=== PATIENT | female | born 1990 | race African-American/Black ===

== ENCOUNTER 2016-10-02 23:08 | Emergency (ER) | payer MEDICAID ==
--- NOTE | 2016-10-02 23:29 | ER Document Report ---
ED General - General Chief Complaint: Nausea/Vomiting Stated Complaint: VOMITING Mode of Arrival: Ambulatory Information source: Patient Notes: Patient presents to the emergency department with reports of sporadic vomiting for the past week. She reports she is able to keep fluids down but unable to keep certain foods down. She reports smells make her nauseated and she will vomit. Patient reports she is possibly hasn't had her menses in the past 2-3 months. She reports she is irregular. She denies other symptoms such as fever diarrhea pain with void vaginal discharge abdominal pain. TRAVEL OUTSIDE OF THE [place] IN LAST 30 DAYS: No - HPI Onset: Last week Onset/Duration: Persistent, Waxing and waning Quality of pain: No pain Severity: None Associated symptoms: Nausea, Vomiting Exacerbated by: Denies Relieved by: Denies Similar symptoms previously: No Recently seen / treated by doctor: No - Related Data Allergies/Adverse Reactions: No Known Allergies Allergy (Verified 10/02/16 23:16) Past Medical History - General Information source: Patient Last Menstrual Period: Unsure - Social History Smoking Status: Never Smoker Cigarette use (# per day): No Frequency of alcohol use: None Drug Abuse: None Occupation: none Lives with: Family Family History: Reviewed & Not Pertinent Patient has suicidal ideation: No Patient has homicidal ideation: No - Medical History Medical History: Negative Past Surgical History: Reports: Hx Section - Immunizations Hx Diphtheria, Pertussis, Tetanus Vaccination: Yes - 09/26/12 Review of Systems - Review of Systems Notes: Review HPI for review of systems., All other systems negative Physical Exam - Vital signs Vitals: Temp Pulse Resp BP Pulse Ox 98.7 F 93 16 128/91 H 96 10/02/16 23:16 10/02/16 23:16 10/02/16 23:16 10/02/16 23:16 10/02/16 23:16 - Notes Notes: PHYSICAL EXAMINATION: GENERAL: Well-appearing and in no acute distress nontoxic looking HEAD: Atraumatic, normocephalic. EYES: Pupils equal round extraocular movements intact, sclera anicteric, conjunctiva are normal. ENT: nares patent, Moist mucous membranes. NECK: Normal range of motion, supple without lymphadenopathy LUNGS: CTAB and equal. No wheezes rales or rhonchi. HEART: Regular rate and rhythm without murmurs ABDOMEN: Soft, no tenderness. Denies pain No guarding, no rebound BACK:Denies pain EXTREMITIES: Normal range of motion NEUROLOGICAL: Cranial nerves grossly intact. Normal sensory/motor exams. PSYCH: Normal mood, normal affect. SKIN: Warm, Dry, normal turgor, no rashes or lesions noted Course - Re-evaluation Re-evalutation: 10/03/16 02:54 Pt isntructed on positive , she started crying. Reports sexually active [place] [id number]. Patient reports she was last sexually active between June and July. She denies abdominal pain. She reports vomiting only. Denies vaginal bleeding. And she reports vomiting only when she has certain smells. She reports she's drinking enough fluids. Patient was instructed on the importance of follow-up with health department or the REGISTERED ART THERAPIST to get on vitamins. She was also instructed on urinary tract infection and Keflex. She verbalized understanding to instructions. - Vital Signs Vital signs: Temp Pulse Resp BP Pulse Ox 98.7 F 93 16 128/91 H 96 10/02/16 23:16 10/02/16 23:16 10/02/16 23:16 10/02/16 23:16 10/02/16 23:16 - Laboratory Result Diagrams: 10/02/16 23:53 10/02/16 23:53 Laboratory results interpreted by me: 10/02/16 10/02/16 10/02/16 23:53 23:53 23:53 Hgb 10.4 L Hct 31.9 L MCV 74 L MCH 24.2 L RDW 17.7 H Serum HCG, Qual POSITIVE H Beta HCG, Quant Ur Leukocyte Esterase MODERATE H 10/02/16 23:53 Hgb Hct MCV MCH RDW Serum HCG, Qual Beta HCG, Quant 17426.00 H Ur Leukocyte Esterase Discharge - Discharge Clinical Impression: elevated blood pressure, Nausea & vomiting Qualifiers: Vomiting type: unspecified Vomiting Intractability: non-intractable Qualified Code(s): R11.2 - Nausea with vomiting, unspecified Infection of urinary tract Qualifiers: Urinary tract infection type: site unspecified Hematuria presence: without hematuria Qualified Code(s): N39.0 - Urinary tract infection, site not specified Condition: Stable Disposition: HOME, SELF-CARE Instructions: Cephalexin ([facility]), Urinary Tract Infection ([facility]), Antinausea Medication ([facility]), Vomiting ([facility]), ([facility]), [employer] [facility], [facility] Additional Instructions: *You have been evaluated for nausea/vomiting, , UTI *Take medication as prescribed *Push fluids *Follow-up with REGISTERED ART THERAPIST or the health department within one week *Follow up with a primary care provider within one week *Plan a urine recheck within one week *Return to ED for worsening condition, changes, needs Prescriptions: Cephalexin Monohydrate [Keflex 500 mg Capsule] 500 mg PO QID #20 capsule Forms: Elevated Blood Pressure Referrals: CONSTANZA ABDULLAHI MARINE SERVICE MANAGER [Primary Care Provider] - Follow up as needed
[2016-10-03 00:05] LABS: ABSOLUTE BASOPHILS # (AUTO) 0.1 10^3/uL (0.0-0.2); ABSOLUTE LYMPHOCYTES (AUTO) 2.9 10^3/uL (0.5-4.7); ABSOLUTE MONOCYTES (AUTO) 0.5 10^3/uL (0.1-1.4); ABSOLUTE NEUT (AUTO) 5.3 10^3/uL (1.7-8.2); BASOPHILS % (AUTO) 0.6 % (0-2); EOSINOPHILS % (AUTO) 0.5 % (0-6); HEMATOCRIT 31.9 % (36.0-47.0); HEMOGLOBIN 10.4 g/dL (12.0-15.5); HGB HCT DIFFERENCE -0.7; LYMPHOCYTES % (AUTO) 33.5 % (13-45); MEAN CORPUSCULAR HEMOGLOBIN 24.2 pg (27.0-33.4); MEAN CORPUSCULAR HGB CONC 32.6 g/dL (32.0-36.0); MEAN CORPUSCULAR VOLUME 74 fl (80-97); MONOCYTES % (AUTO) 5.6 % (3-13); RED BLOOD COUNT 4.29 10^6/uL (3.72-5.28); RED CELL DISTRIBUTION WIDTH 17.7 % (11.5-14.0); SEGMENTED NEUTROPHILS % (AUTO) 59.8 % (42-78); WHITE BLOOD COUNT 8.8 10^3/uL (4.0-10.5)
[2016-10-03 00:16] LABS: APPEARANCE,URINE SLIGHTLY-CLOUDY; BILIRUBIN,URINE NEGATIVE (NEGATIVE); GLUCOSE, URINE NEGATIVE (NEGATIVE); KETONES,URINE NEGATIVE (NEGATIVE); LEUKOCYTE ESTERASE,URINE MODERATE (NEGATIVE); NITRITE,URINE NEGATIVE (NEGATIVE); PROTEIN,URINE NEGATIVE (NEGATIVE); URINE SPECIFIC GRAVITY 1.028; UROBILINOGEN,URINE NEGATIVE mg/dL (<2.0)
[2016-10-03 00:22] LABS: ALANINE AMINOTRANSFERASE 21 U/L (9-52); ALBUMIN 3.9 g/dL (3.5-5.0); ALKALINE PHOSPHATASE 58 U/L (38-126); ANION GAP 10 (5-19); ASPARTATE AMINO TRANSFERASE 21 U/L (14-36); BILIRUBIN,TOTAL 0.3 mg/dL (0.2-1.3); BLOOD UREA NITROGEN 10 mg/dL (7-20); CALCIUM 9.2 mg/dL (8.4-10.2); CARBON DIOXIDE 26 mmol/L (22-30); CHLORIDE 103 mmol/L (98-107); CREATININE RESULT 0.74 mg/dL (0.52-1.25); GLUCOSE 92 mg/dL (75-110); LIPASE 31.8 U/L (23-300); POTASSIUM 3.8 mmol/L (3.6-5.0); SODIUM 139.3 mmol/L (137-145); TOTAL PROTEIN 7.8 g/dL (6.3-8.2)
[2016-10-03] MEDS ORDERED: CEPHALEXIN 500 MG CAPSULE PO ONE (02:15)
[2016-10-03 03:01] VITALS: BP 133/75
== END 2016-10-03 02:59 | disposition home or self-care (01) ==
LOC: ER 23:08
DX: O21.9 Vomiting of pregnancy, unspecified (principal); O23.40 Unspecified infection of urinary tract in pregnancy, unspecified trimester; O26.899 Other specified pregnancy related conditions, unspecified trimester; R03.0 Elevated blood-pressure reading, without diagnosis of hypertension; Z3A.00 Weeks of gestation of pregnancy not specified
CPT/HCPCS: 36415; 80053; 81001; 83690; 84702; 84703; 85025; 99284

== ENCOUNTER 2017-01-12 19:15 | Emergency (ER) | payer SELFPAY ==
[2017-01-12] MEDS ORDERED: AMOXICILLIN TRIHYDRATE 500 MG CAPSULE PO ONE (20:04)
[2017-01-12] MEDS ORDERED: HYDROCODONE/ACETAMINOPHEN 5-325 MG TABLET PO ONE (20:04)
--- NOTE | 2017-01-12 20:11 | ER Document Report ---
HPI - HPI Patient complains to provider of: RIGHT EAR PAIN Onset: Other - 2 DAYS Onset/Duration: Gradual Quality of pain: Throbbing Severity: Severe Pain Level: 5 Associated Symptoms: Earache Exacerbated by: Denies Relieved by: Denies Similar symptoms previously: Yes Recently seen / treated by doctor: No - ROS Systems Reviewed and Negative: Yes All other systems reviewed and negative - CONSTITUTIONAL Constitutional: REPORTS: Fever - EENT EENT: REPORTS: Ear Pain. DENIES: Congestion - NEURO Neurology: REPORTS: Headache - CARDIOVASCULAR Cardiovascular: DENIES: Chest pain - RESPIRATORY Respiratory: DENIES: Trouble Breathing - GASTROINTESTINAL Gastrointestinal: DENIES: Abdominal Pain - URINARY Urinary: DENIES: Dysuria - REPRODUCTIVE LMP: 5 days ago Reproductive: DENIES: : - DERM Skin Color: Normal Skin Problems: None Past Medical History - General Information source: Patient - Social History Smoking Status: Never Smoker Frequency of alcohol use: None Drug Abuse: None Lives with: Family Family History: Reviewed & Not Pertinent - Medical History Medical History: Negative Renal/ Medical History: Denies: Hx Peritoneal Dialysis Past Surgical History: Reports: Hx Section - Immunizations Hx Diphtheria, Pertussis, Tetanus Vaccination: Yes - 09/26/12 Vertical Provider Document - CONSTITUTIONAL Agree With Documented VS: Yes Exam Limitations: No Limitations General Appearance: WD/WN, Mild Distress - INFECTION CONTROL TRAVEL OUTSIDE OF THE [place] IN LAST 30 DAYS: No - HEENT HEENT: Atraumatic, Normocephalic. negative: Pharyngeal Erythema Notes: LEFT TM RED AND RETRACTED - NECK Neck: Normal Inspection - RESPIRATORY Respiratory: Breath Sounds Normal, No Respiratory Distress O2 Sat by Pulse Oximetry: 99 - CARDIOVASCULAR Cardiovascular: Regular Rate, Regular Rhythm - GI/ABDOMEN Gastrointestinal: Abdomen Soft - MUSCULOSKELETAL/EXTREMETIES Musculoskeletal/Extremeties: MAJEVON FROM - NEURO Level of Consciousness: Awake, Alert, Appropriate - DERM Integumentary: Warm, Dry, No Rash Course - Vital Signs Vital signs: Temp Pulse Resp BP Pulse Ox 98.5 F 64 14 137/76 H 99 01/12/17 19:44 01/12/17 19:44 01/12/17 19:44 01/12/17 19:44 01/12/17 19:44 Discharge - Discharge Clinical Impression: Left acute otitis media Condition: Good Disposition: HOME, SELF-CARE Additional Instructions: MEDS PRESCRIBED TYLENOL OR MOTRIN FOR PAIN FOLLOW UP WITH YOUR DOCTOR IF NOT BETTER IN ONE WEEK RETURN NEEDED Prescriptions: Amoxicillin 875 mg PO BID #20 tablet Ibuprofen 800 mg PO TID PRN #30 tablet PRN Reason: Forms: Return to Work
[2017-01-12 20:28] VITALS: BP 135/80
== END 2017-01-12 20:27 | disposition home or self-care (01) ==
LOC: ER 19:15
DX: H66.92 Otitis media, unspecified, left ear (principal); R51 Headache
CPT/HCPCS: 99282

== ENCOUNTER 2017-04-01 10:59 | Emergency (ER) | payer SELFPAY ==
[2017-04-01] MEDS ORDERED: PENICILLIN G BENZATHINE 1.2 MILLION UNIT/2 ML DISP.SYRIN IM ONE (11:33)
[2017-04-01] MEDS ORDERED: DEXAMETHASONE 4 MG TABLET PO ONE (11:33)
[2017-04-01] MEDS ORDERED: IBUPROFEN 800 MG TABLET PO ONE (11:33)
--- NOTE | 2017-04-01 11:38 | ER Document Report ---
HPI - HPI Patient complains to provider of: sore throat Onset: Other - 4 days Onset/Duration: Persistent Quality of pain: Achy Pain Level: 5 Context: Presents complaining of sore throat for the past 4 days. Patient denies any cough. Associated Symptoms: Sore throat. denies: Nonproductive cough, Productive cough Exacerbated by: Denies Relieved by: Denies Similar symptoms previously: Yes Recently seen / treated by doctor: No - ROS ROS below otherwise negative: Yes Systems Reviewed and Negative: Yes All other systems reviewed and negative - CONSTITUTIONAL Constitutional: DENIES: Fever - EENT EENT: REPORTS: Sore Throat - RESPIRATORY Respiratory: DENIES: Coughing - GASTROINTESTINAL Gastrointestinal: DENIES: Nausea, Patient vomiting - REPRODUCTIVE LMP: 03/11/17 Reproductive: DENIES: : - MUSCULOSKELETAL Musculoskeletal: DENIES: Neck Pain - DERM Skin Color: Normal Skin Problems: None Past Medical History - General Information source: Patient - Social History Smoking Status: Never Smoker Frequency of alcohol use: None Drug Abuse: None Occupation: none Family History: Reviewed & Not Pertinent Patient has suicidal ideation: No Patient has homicidal ideation: No - Medical History Medical History: Negative Renal/ Medical History: Denies: Hx Peritoneal Dialysis Past Surgical History: Reports: Hx Section - Immunizations Hx Diphtheria, Pertussis, Tetanus Vaccination: Yes - 09/26/12 Vertical Provider Document - CONSTITUTIONAL Agree With Documented VS: Yes Exam Limitations: No Limitations General Appearance: WD/WN, No Apparent Distress - INFECTION CONTROL TRAVEL OUTSIDE OF THE [place] IN LAST 30 DAYS: No - HEENT HEENT: Atraumatic, Normocephalic, Pharyngeal Exudate, Pharyngeal Tenderness, Pharyngeal Erythema - NECK Neck: Lymphadenopathy-Left, Lymphadenopathy-Right - RESPIRATORY Respiratory: Breath Sounds Normal, No Respiratory Distress, Chest Non-Tender - CARDIOVASCULAR Cardiovascular: Regular Rate, Regular Rhythm, No Murmur - MUSCULOSKELETAL/EXTREMETIES Musculoskeletal/Extremeties: MAEW - NEURO Level of Consciousness: Awake, Alert, Appropriate Motor/Sensory: No Motor Deficit - DERM Integumentary: Warm, Dry, No Rash Course - Re-evaluation Re-evalutation: 04/01/17 11:37 The patient has been informed that they may have pre-hypertension or hypertension based on a blood pressure reading in the emergency department. I recommend that patient call the primary care provider listed on their discharge instructions or a physician of their choice by this week to arrange follow-up for further evaluation of possible pre-hypertension her hypertension. Discharge - Discharge Clinical Impression: Tonsillitis, Elevated blood pressure reading Condition: Stable Disposition: HOME, SELF-CARE Instructions: Tonsillitis ([facility]), Sore Throat ([facility]), Use of [id number] Ibuprofen ([facility]), Corticosteroid Medication ([facility]), Antibiotic Shot ([facility]) Additional Instructions: Return immediately for any new or worsening symptoms Followup with your primary care provider, call tomorrow to make a followup appointment Your blood pressure is elevated recheck with a primary care provider this week to have it rechecked Prescriptions: Acetaminophen with Codeine [Acetaminophen-Cod #3 Tablet] 1 each PO Q6 PRN #12 tablet PRN Reason: Forms: Elevated Blood Pressure Referrals: KAREN REED MD [Primary Care Provider] - Follow up as needed
[2017-04-01 12:12] VITALS: BP 142/98
== END 2017-04-01 12:10 | disposition home or self-care (01) ==
LOC: ER 10:59
DX: J03.90 Acute tonsillitis, unspecified (principal); R03.0 Elevated blood-pressure reading, without diagnosis of hypertension; J02.9 Acute pharyngitis, unspecified
CPT/HCPCS: 99284; 96372; J0561

== ENCOUNTER 2017-06-05 21:57 | Emergency (ER) | payer SELFPAY ==
[2017-06-05 22:58] LABS: APPEARANCE,URINE SLIGHTLY-CLOUDY; BILIRUBIN,URINE NEGATIVE (NEGATIVE); GLUCOSE, URINE NEGATIVE (NEGATIVE); KETONES,URINE NEGATIVE (NEGATIVE); LEUKOCYTE ESTERASE,URINE TRACE (NEGATIVE); NITRITE,URINE NEGATIVE (NEGATIVE); PROTEIN,URINE NEGATIVE (NEGATIVE); URINE SPECIFIC GRAVITY 1.033; UROBILINOGEN,URINE NEGATIVE mg/dL (<2.0)
[2017-06-05 23:08] LABS: ABSOLUTE BASOPHILS # (AUTO) 0.1 10^3/uL (0.0-0.2); ABSOLUTE LYMPHOCYTES (AUTO) 2.8 10^3/uL (0.5-4.7); ABSOLUTE MONOCYTES (AUTO) 0.6 10^3/uL (0.1-1.4); ABSOLUTE NEUT (AUTO) 5.8 10^3/uL (1.7-8.2); EOSINOPHILS % (AUTO) 0.5 % (0-6); HEMATOCRIT 30.9 % (36.0-47.0); HEMOGLOBIN 10.2 g/dL (12.0-15.5); HGB HCT DIFFERENCE -0.3; MEAN CORPUSCULAR HEMOGLOBIN 25.4 pg (27.0-33.4); MEAN CORPUSCULAR VOLUME 77 fl (80-97); MONOCYTES % (AUTO) 6.1 % (3-13); RED BLOOD COUNT 4.03 10^6/uL (3.72-5.28); RED CELL DISTRIBUTION WIDTH 17.8 % (11.5-14.0); SEGMENTED NEUTROPHILS % (AUTO) 62.4 % (42-78); WHITE BLOOD COUNT 9.3 10^3/uL (4.0-10.5)
[2017-06-05 23:25] LABS: ALANINE AMINOTRANSFERASE 20 U/L (9-52); ALBUMIN 3.3 g/dL (3.5-5.0); ALKALINE PHOSPHATASE 53 U/L (38-126); ANION GAP 8 (5-19); ASPARTATE AMINO TRANSFERASE 13 U/L (14-36); BILIRUBIN,DIRECT 0.2 mg/dL (0.0-0.4); BILIRUBIN,TOTAL 0.2 mg/dL (0.2-1.3); BLOOD UREA NITROGEN 12 mg/dL (7-20); CALCIUM 9.5 mg/dL (8.4-10.2); CARBON DIOXIDE 24 mmol/L (22-30); CHLORIDE 108 mmol/L (98-107); CREATININE RESULT 0.84 mg/dL (0.52-1.25); GLUCOSE 104 mg/dL (75-110); LIPASE 82.3 U/L (23-300); POTASSIUM 3.9 mmol/L (3.6-5.0); SODIUM 140.3 mmol/L (137-145); TOTAL PROTEIN 6.6 g/dL (6.3-8.2)
--- NOTE | 2017-06-06 | ER Document Report ---
ED GI/ - General Chief Complaint: Abdominal Cramping Stated Complaint: HEADACHE/BACK PAIN Time Seen by Provider: 06/05/17 22:33 Mode of Arrival: Ambulatory Information source: Patient Notes: Patient is a 27-year-old female who presents to the ER today for 1 week of abdominal cramping in the lower abdomen, low back pain. Patient last had her period April 15, took a test a few days ago at home which was positive. She does have an appointment at the health department in 2 days, but wanted to come here to confirm that her test was correct. She denies any dysuria, vaginal bleeding, abnormal vaginal discharge. TRAVEL OUTSIDE OF THE [place] IN LAST 30 DAYS: No - Related Data Allergies/Adverse Reactions: No Known Allergies Allergy (Verified 06/05/17 22:03) Past Medical History - General Information source: Patient - Social History Smoking Status: Never Smoker Chew tobacco use (# tins/day): No Frequency of alcohol use: None Drug Abuse: None Family History: Reviewed & Not Pertinent Patient has suicidal ideation: No Patient has homicidal ideation: No Renal/ Medical History: Denies: Hx Peritoneal Dialysis Past Surgical History: Reports: Hx Section - x1 - Immunizations Hx Diphtheria, Pertussis, Tetanus Vaccination: Yes - 09/26/12 Review of Systems - Review of Systems Constitutional: No symptoms reported EENT: No symptoms reported Cardiovascular: No symptoms reported Respiratory: No symptoms reported Gastrointestinal: No symptoms reported Genitourinary: No symptoms reported Female Genitourinary: See HPI Musculoskeletal: No symptoms reported Skin: No symptoms reported Hematologic/Lymphatic: No symptoms reported Neurological/Psychological: No symptoms reported Physical Exam - Vital signs Vitals: Temp Pulse Resp BP Pulse Ox 98.2 F 80 18 161/77 H 93 06/05/17 22:03 06/05/17 22:03 06/05/17 22:03 06/05/17 22:03 06/05/17 22:03 - Notes Notes: PHYSICAL EXAMINATION: GENERAL: Well-appearing and in no acute distress. HEAD: Atraumatic, normocephalic. EYES: Pupils equal round and reactive to light, extraocular movements intact, sclera anicteric, conjunctiva are normal. NECK: Normal range of motion, supple without lymphadenopathy LUNGS: CTAB and equal. No wheezes rales or rhonchi. HEART: Regular rate and rhythm without murmurs ABDOMEN: Soft, no tenderness. No guarding, no rebound BACK: no vertebral tenderness, normal ROM GI/: no CVA tenderness EXTREMITIES: Normal range of motion, no pitting edema. No cyanosis. NEUROLOGICAL: Cranial nerves grossly intact. Normal sensory/motor exams. PSYCH: Normal mood, normal affect. SKIN: Warm, Dry, normal turgor, no rashes or lesions noted Course - Re-evaluation Re-evalutation: 06/06/17 01:01 HCG quant is over 10,000, she has an appt at the Health department in 2 days, I advised her to keep this appointment. I will treat her for UTI as she does have some white blood cells and trace leukocytes in her urine although she also has epithelial cells. I am treating her because there is an increased risk of miscarriage with UTI. 06/06/17 01:03 - Vital Signs Vital signs: Temp Pulse Resp BP Pulse Ox 97.8 F 70 18 141/89 H 100 06/06/17 00:02 06/06/17 00:02 06/06/17 00:02 06/06/17 00:02 06/06/17 00:02 - Laboratory Result Diagrams: 06/05/17 23:00 06/05/17 23:00 Laboratory results interpreted by me: 06/05/17 06/05/17 06/05/17 22:32 23:00 23:00 Hgb 10.2 L Hct 30.9 L MCV 77 L MCH 25.4 L RDW 17.8 H Chloride 108 H AST 13 L Albumin 3.3 L Beta HCG, Quant 00393.00 H Ur Leukocyte Esterase TRACE H Discharge - Discharge Clinical Impression: Abdominal cramping Qualifiers: Weeks of gestation: less than 8 weeks Qualified Code(s): Z3A.01 - Less than 8 weeks gestation of UTI (urinary tract infection) Qualifiers: Urinary tract infection type: site unspecified Hematuria presence: without hematuria Qualified Code(s): N39.0 - Urinary tract infection, site not specified Condition: Stable Disposition: HOME, SELF-CARE Additional Instructions: Take vitamins [id number]. Return immediately for any new or worsening symptoms. Follow up with APPLICATION ADMINISTRATOR, call tomorrow to make followup appointment. Prescriptions: Nitrofurantoin/Nitrofuran Mac [Macrobid 100 mg Capsule] 1 tab PO BID #14 capsule Referrals: KAREN REED MD [Primary Care Provider] - Follow up as needed [facility] [Provider Group] - Follow up as needed
[2017-06-06 00:05] VITALS: BP 141/89
== END 2017-06-06 00:05 | disposition home or self-care (01) ==
LOC: ER 21:57
DX: O23.41 Unspecified infection of urinary tract in pregnancy, first trimester (principal); R10.30 Lower abdominal pain, unspecified; R51 Headache; Z3A.01 Less than 8 weeks gestation of pregnancy
CPT/HCPCS: 36415; 80053; 81001; 83690; 84702; 85025; 99284

== ENCOUNTER 2017-06-11 05:09 | Emergency (ER) | payer MEDICAID ==
[2017-06-11] MEDS ORDERED: PENICILLIN V POTASSIUM 500 MG TABLET PO ONE (06:43)
[2017-06-11] MEDS ORDERED: BUPIVACAINE HCL 0.5 % INJ/PF 30 ML SDV INJ ONE (06:43)
--- NOTE | 2017-06-11 07:11 | ER Document Report ---
ED General - General Chief Complaint: Toothache Stated Complaint: TOOTHACHE Time Seen by Provider: 06/11/17 06:13 Mode of Arrival: Ambulatory Information source: Patient Notes: 27-year-old female who is 8 weeks with no vaginal or abdominal complaints presents with was a dental pain. Patient notes it is in the right upper, pt denies any fevers or chills, denies any facial swelling. pt on going for 3 days, denies having a dentist. TRAVEL OUTSIDE OF THE [place] IN LAST 30 DAYS: No - HPI Onset: Other Onset/Duration: Persistent Quality of pain: Achy Severity: Mild Pain Level: 1 Associated symptoms: Other Exacerbated by: Denies Relieved by: Denies Similar symptoms previously: Yes Recently seen / treated by doctor: Yes - Related Data Allergies/Adverse Reactions: No Known Allergies Allergy (Verified 06/05/17 22:03) Past Medical History - Social History Smoking Status: Never Smoker Cigarette use (# per day): No Chew tobacco use (# tins/day): No Smoking Education Provided: No Family History: Reviewed & Not Pertinent Patient has suicidal ideation: No Patient has homicidal ideation: No Renal/ Medical History: Denies: Hx Peritoneal Dialysis Past Surgical History: Reports: Hx Section - x1 - Immunizations Hx Diphtheria, Pertussis, Tetanus Vaccination: Yes - 09/26/12 Review of Systems - Review of Systems Notes: REVIEW OF SYSTEMS: CONSTITUTIONAL : Denies fever, chills, or sweats. Denies recent illness. EENT: Dental pain CARDIOVASCULAR: Denies chest pain. Denies palpitations or racing or irregular heart beat. Denies ankle edema. RESPIRATORY: Denies cough, cold, or chest congestion. Denies shortness of breath, difficulty breathing, or wheezing. GASTROINTESTINAL: Denies abdominal pain or distention. Denies nausea, vomiting , or diarrhea. Denies blood in vomitus, stools, or per rectum. Denies black, tarry stools. Denies constipation. GENITOURINARY: Denies difficulty urinating, painful urination, burning, frequency, blood in urine, or discharge. FEMALE GENITOURINARY: Denies vaginal bleeding, heavy or abnormal periods, irregular periods. Denies vaginal discharge or odor. MUSCULOSKELETAL: Denies back or neck pain or stiffness. Denies joint pain or swelling. SKIN: Denies rash, lesions or sores. HEMATOLOGIC : Denies easy bruising or bleeding. LYMPHATIC: Denies swollen, enlarged glands. NEUROLOGICAL: Denies confusion or altered mental status. Denies passing out or loss of consciousness. Denies dizziness or lightheadedness. Denies headache. Denies weakness or paralysis or loss of use of either side. Denies problems with gait or speech. Denies sensory loss, numbness, or tingling. Denies seizures. PSYCHIATRIC: Denies anxiety or stress. Denies depression, suicidal ideation, or homicidal ideation. ALL OTHER SYSTEMS REVIEWED AND NEGATIVE. PHYSICAL EXAMINATION: GENERAL: Well-appearing, well-nourished and in no acute distress. HEAD: Atraumatic, normocephalic. EYES: Pupils equal round and reactive to light, extraocular movements intact, conjunctiva are normal. ENT: Tooth #1 is fractured tender to palpation NECK: Normal range of motion, supple without lymphadenopathy LUNGS: Breath sounds clear to auscultation bilaterally and equal. No wheezes rales or rhonchi. HEART: Regular rate and rhythm without murmurs ABDOMEN: Soft, nontender, nondistended abdomen. No guarding, no rebound. No masses appreciated. Female : deferred Musculoskeletal: Normal range of motion, no pitting or edema. No cyanosis. NEUROLOGICAL: Cranial nerves grossly intact. Normal speech, normal gait. Normal sensory, motor exams PSYCH: Normal mood, normal affect. SKIN: Warm, Dry, normal turgor, no rashes or lesions noted. Dictation was performed using [employer] voice recognition software Physical Exam - Vital signs Vitals: Temp Pulse Resp BP Pulse Ox 98.3 F 84 18 141/93 H 98 06/11/17 05:13 06/11/17 05:13 06/11/17 05:13 06/11/17 05:13 06/11/17 05:13 Course - Re-evaluation Re-evalutation: 06/11/17 07:20 Patient's request and inferior orbital nerve block was performed with complete resolution of patient's pain. She will be started on penicillins otherwise well -appearing. Patient is given a list of low-cost dentistry to follow-up with After performing a Medical Screening Examination, I estimate there is LOW risk for a DEEP SPACE INFECTION (e.g., MILLICENT'S ANGINA OR RETROPHARYNGEAL ABSCESS), MENINGITIS, INTRACRANIAL HEMORRHAGE, or AIRWAY COMPROMISE, thus I consider the discharge disposition reasonable. Also, there is no evidence or peritonitis, sepsis, or toxicity. I have reevaluated this patient multiple times and no significant life threatening changes are noted. The patient and I have discussed the diagnosis and risks, and we agree with discharging home with close follow-up with the understanding that symptoms and presentations can change. We also discussed returning to the Emergency Department immediately if new or worsening symptoms occur. We have discussed the symptoms which are most concerning (e.g., changing or worsening pain, trouble swallowing or breathing, neck stiffness or fever) that necessitate immediate return. - Vital Signs Vital signs: Temp Pulse Resp BP Pulse Ox 98.3 F 84 18 141/93 H 98 06/11/17 05:13 06/11/17 05:13 06/11/17 05:13 06/11/17 05:13 06/11/17 05:13 Discharge - Discharge Clinical Impression: Pain, dental Qualifiers: Weeks of gestation: 8 weeks Qualified Code(s): Z3A.08 - 8 weeks gestation of Condition: Stable Disposition: HOME, SELF-CARE Instructions: Toothache ([facility]) Additional Instructions: Please follow-up with low cost dentistry that has been provided to your return immediately if there are any other concerns Prescriptions: Penicillin V Potassium [Penicillin Vk 500 mg Tablet] 500 mg PO Q6 #40 tablet Referrals: [facility]LLID[facility] DO [Primary Care Provider] - Follow up as needed
[2017-06-11 07:26] VITALS: BP 125/77
== END 2017-06-11 07:19 | disposition home or self-care (01) ==
LOC: ER 05:09
PROC: 3E0T3BZ Introduction of Anesthetic Agent into Peripheral Nerves and Plexi, Percutaneous Approach (ICD-10-PCS; principal; 2017-06-11)
DX: K08.89 Other specified disorders of teeth and supporting structures (principal); Z3A.08 8 weeks gestation of pregnancy
CPT/HCPCS: 99282; 64400; J3490

== ENCOUNTER → 2017-06-25 | Outpatient (CLI) | payer SELFPAY ==
--- NOTE | 2017-06-25 15:36 | RADIOLOGY REPORT (SQ) ---
EXAM DESCRIPTION: U/S OW2TAFM TRNABD 1GES W/ODOP COMPLETED DATE/TIME: 06/25/2017 2:49 pm REASON FOR STUDY: ENCOUNTER FOR SUPERVISION OF OTHER NORMAL FIRST TRIMESTER Z34.[address] FOR SUPRVSN OF NORMAL , FIRST TRIM COMPARISON: No previous this TECHNIQUE: Transvaginal and transabdominal static and realtime grayscale images acquired of the pelv is. Additional selected spectral and color Doppler images recorded. All images stored on PACs. bHCG: Not available, last menses 04/15/2017 LIMITATIONS: None. FINDINGS: FETUS: Living intrauterine . EGA: 8 weeks 1 day by crown-rump length MARY JANE: 02/03/2018 FHR: 175 beats per minute. SUBCHORIONIC BLEED: No SIZE OF BLEED: Not applicable. UTERUS: No masses. No anomalies. Uterus is 11.1 x 8.5 x 7.6 cm in size. CERVICAL LENGTH: 3.2 cm Closed. RIGHT ADNEXA: Ovary not visualized. No adnexal free fluid. No adnexal masses. LEFT ADNEXA: Normal ovary with normal vascular flow. Left ovary 2.8 x 1.9 x 1.7 cm No adnexal free fluid. No adnexal masses. FREE FLUID: None. OTHER: No other significant finding. IMPRESSION: LIVING INTRAUTERINE . EGA 8 weeks 1 day Trimester of : First - 0 to 13 weeks. TECHNICAL DOCUMENTATION: JOB ID: [id number]- All Rights Reserved
== END ==
LOC: RAD 14:12
PROVIDERS: ATTEND Nurse Practitioner Women's Health
DX: Z34.81 Encounter for supervision of other normal pregnancy, first trimester (principal)
CPT/HCPCS: 76801

== ENCOUNTER 2017-11-09 18:15 | Outpatient (CLI) | payer MEDICAID ==
[2017-11-09 18:57] LABS: APPEARANCE,URINE SLIGHTLY-CLOUDY; BILIRUBIN,URINE NEGATIVE (NEGATIVE); CALCIUM OXALATE CRYSTALS,URINE FEW /HPF; COLOR,URINE YELLOW; GLUCOSE, URINE NEGATIVE (NEGATIVE); KETONES,URINE NEGATIVE (NEGATIVE); LEUKOCYTE ESTERASE,URINE TRACE (NEGATIVE); NITRITE,URINE NEGATIVE (NEGATIVE); PROTEIN,URINE NEGATIVE (NEGATIVE); URINE SPECIFIC GRAVITY 1.025
[2017-11-09 19:06] LABS: URINE AMPHETAMINES SCREEN NEGATIVE; URINE BARBITURATES SCREEN NEGATIVE; URINE BENZODIAZEPINES SCREEN NEGATIVE; URINE COCAINE SCREEN NEGATIVE; URINE MARIJUANA (THC) SCREEN NEGATIVE; URINE METHADONE SCREEN NEGATIVE; URINE PHENCYCLIDINE SCREEN NEGATIVE
[2017-11-09] MEDS ORDERED: MAG HYDROX/AL HYDROX/SIMETH SUSP 30 ML UDCUP ONE (20:11)
[2017-11-09] MEDS ORDERED: METOCLOPRAMIDE HCL ORAL SOLN 10 MG/10 ML UDCUP PO ONE (20:30)
[2017-11-09] MEDS ORDERED: LIDOCAINE 2% VISCOUS SOLN 20 ML UDCUP PO ONE (20:30)
[2017-11-09] MEDS ORDERED: MAG HYDROX/AL HYDROX/SIMETH SUSP 30 ML UDCUP PO ONE (20:30)
== END 2017-11-09 20:51 | disposition home or self-care (01) ==
LOC: LC 18:15
PROVIDERS: ATTEND Obstetrics & Gynecology
PROC: 4A1HXCZ Monitoring of Products of Conception, Cardiac Rate, External Approach (ICD-10-PCS; principal; 2017-11-09)
DX: O36.8130 Decreased fetal movements, third trimester, not applicable or unspecified (principal); Z3A.28 28 weeks gestation of pregnancy
CPT/HCPCS: 59899; 81001; 80307; J3490 ×3

== ENCOUNTER 2018-01-27 04:54 | Inpatient (IN) | payer MEDICAID ==
[2018-01-26 12:02] LABS: APPEARANCE,URINE SLIGHTLY-CLOUDY; BILIRUBIN,URINE NEGATIVE (NEGATIVE); COLOR,URINE YELLOW; GLUCOSE, URINE NEGATIVE (NEGATIVE); KETONES,URINE NEGATIVE (NEGATIVE); LEUKOCYTE ESTERASE,URINE NEGATIVE (NEGATIVE); NITRITE,URINE NEGATIVE (NEGATIVE); PROTEIN,URINE NEGATIVE (NEGATIVE); URINE SPECIFIC GRAVITY 1.019; UROBILINOGEN,URINE NEGATIVE mg/dL (<2.0)
[2018-01-26 12:14] LABS: ABSOLUTE LYMPHOCYTES (AUTO) 1.6 10^3/uL (0.5-4.7); ABSOLUTE MONOCYTES (AUTO) 0.6 10^3/uL (0.1-1.4); ABSOLUTE NEUT (AUTO) 5.1 10^3/uL (1.7-8.2); BASOPHILS % (AUTO) 0.3 % (0-2); EOSINOPHILS % (AUTO) 0.2 % (0-6); HEMATOCRIT 29.6 % (36.0-47.0); HEMOGLOBIN 9.4 g/dL (12.0-15.5); LYMPHOCYTES % (AUTO) 21.5 % (13-45); MEAN CORPUSCULAR HGB CONC 31.9 g/dL (32.0-36.0); MEAN CORPUSCULAR VOLUME 75 fl (80-97); MONOCYTES % (AUTO) 8.2 % (3-13); PLATELET COUNT 263 10^3/uL (150-450); RED BLOOD COUNT 3.92 10^6/uL (3.72-5.28); RED CELL DISTRIBUTION WIDTH 18.4 % (11.5-14.0); SEGMENTED NEUTROPHILS % (AUTO) 69.8 % (42-78); TOTAL CELLS COUNTED % (AUTO) 100 %; WHITE BLOOD COUNT 7.3 10^3/uL (4.0-10.5)
[2018-01-26 12:27] LABS: URINE AMPHETAMINES SCREEN NEGATIVE; URINE BARBITURATES SCREEN NEGATIVE; URINE BENZODIAZEPINES SCREEN NEGATIVE; URINE COCAINE SCREEN NEGATIVE; URINE MARIJUANA (THC) SCREEN NEGATIVE; URINE METHADONE SCREEN NEGATIVE; URINE PHENCYCLIDINE SCREEN NEGATIVE
[2018-01-27] MEDS ORDERED: RINGERS SOLUTION,LACTATED 1,500 ML IV PRN (05:00)
[2018-01-27] MEDS ORDERED: LIDOCAINE 0.5% INJ-PF (5 MG/ML) 50 ML SDV SUBCUT PRN (05:00)
[2018-01-27] MEDS ORDERED: LACTATED RINGERS 1000 ML IV PRN (05:00)
[2018-01-27] MEDS ORDERED: CEFAZOLIN 1 GM/D5W RTU 1 GM/50 ML RTUPB IV PRN (05:00)
[2018-01-27] MEDS ORDERED: AZITHROMYCIN 500 MG in DEXTROSE 5%-WATER 250 ML IV PRN (05:00)
[2018-01-27] MEDS ORDERED: OXYTOCIN/NORMAL SALINE 20 UNIT/1,000 ML RTUINJ ONE (07:13)
[2018-01-27] MEDS ORDERED: EPHEDRINE SULFATE INJ 50 MG/1 ML AMPULE ONE (07:14)
[2018-01-27] MEDS ORDERED: OXYTOCIN 10 UNIT/ML VIAL ONE (07:14)
[2018-01-27] MEDS ORDERED: FENTANYL CITRATE INJ/PF 100 MCG/2 ML AMPUL ONE (07:14)
[2018-01-27] MEDS ORDERED: MIDAZOLAM 2 MG/2 ML INJ ONE (07:14)
[2018-01-27] MEDS ORDERED: ACETAMINOPHEN 100 ML IV ONE (07:29)
[2018-01-27] MEDS ORDERED: TETRACAINE HCL/PF 20MG/2ML AMPULE (SPINAL) ONE (07:30)
[2018-01-27] MEDS ORDERED: DIPHENHYDRAMINE HCL 50 MG/ML VIAL IV PRN (07:33)
[2018-01-27] MEDS ORDERED: ONDANSETRON HCL INJ/PF 4 MG/2 ML SDV IV PRN (07:33)
[2018-01-27] MEDS ORDERED: MEPERIDINE HCL/PF INJ 25 MG/1 ML DISP.SYRIN IV PRN (07:33)
[2018-01-27] MEDS ORDERED: FENTANYL CITRATE INJ/PF 100 MCG/2 ML AMPUL IV PRN ×3 (07:33)
[2018-01-27] MEDS ORDERED: MORPHINE SULFATE 10 MG/ML INJ IV PRN (07:33)
[2018-01-27] MEDS ORDERED: PROMETHAZINE HCL INJ 25 MG/1 ML VIAL IV PRN ×2 (07:33)
[2018-01-27] MEDS ORDERED: TRANEXAMIC ACID INJ/PF 1,000 MG/10 ML SDV IV ONE (08:52)
--- NOTE | 2018-01-27 09:29 | OPERATIVE REPORT E ---
Operative Report NAME: BELINDA OSPINA : 1990 AGE: 27Y DATE OF SURGERY: 01/27/2018 ROOM: 228 PREOPERATIVE DIAGNOSIS: IUP at term with prior . POSTOPERATIVE DIAGNOSES: 1. IUP at term with prior . 2. Adhesions. OPERATION: Repeat low-transverse with delivery of a viable male, 8 pounds 7 ounces, Apgars of 4 and 8. SURGEON: Sunil PINTO M.D. ANESTHESIA: Spinal. TISSUE REMOVED: Placenta. PROCEDURE: Patient was placed in a supine position, rolled on her right side, prepped in the usual sterile fashion. A Pfannenstiel incision was made through an existing Pfannenstiel eschar and the incision extended through subcutaneous tissue and fascia with sharp dissection. The fascia was sharply divided. The rectus muscles were bluntly and sharply divided and the parietal peritoneum was entered with sharp dissection. Multiple adhesions on the anterior abdominal wall were encountered on the uterus. These were taken down so that the lower uterine segment could be accessed. The uterus was nicked in the midline and extended bilaterally with blunt dissection. The infant was delivered through the placenta and uterine abdominal incision. Nose and mouth were suctioned with bulb syringe. The cord was clamped and the was passed from the table. The placenta was manually extracted and the uterus was closed in 2 layers using 0 Vicryl first in a running stitch and the second a Lembert stitch imbricating the first layer. Multiple areas of bleeding were noted secondary to the adhesions that were taken down during entry. Multiple sutures were used to try to control the bleeding to the point where the incisions were hemostatic. Interceed was placed over the incision and FloSeal was used to hasten the clotting. The fascia was then closed with 0 Vicryl and the skin was closed with subcutaneous absorbable janett. Her urine remained clear throughout the procedure and she was taken to the recovery room in good condition. DICTATING PHYSICIAN: Sunil PINTO M.D. [id number] PHY#: [id number] ID: [id number] JOB#: [id number] ACCT: [id number] cc:Sunil PINTO M.D. > [facility]
[2018-01-27] MEDS ORDERED: MORPHINE SULFATE 10 MG/ML INJ ONE (10:58)
[2018-01-27] MEDS ORDERED: ONDANSETRON HCL INJ/PF 4 MG/2 ML SDV ONE (11:35)
[2018-01-27] MEDS ORDERED: DEXAMETHASONE SOD PHOSPHATE INJ 4 MG/1 ML VIAL ONE (11:35)
[2018-01-27] MEDS ORDERED: KETOROLAC TROMETHAMINE 60 MG/2 ML SDV ONE (11:35)
[2018-01-27] MEDS ORDERED: METOCLOPRAMIDE HCL INJ/PF 10 MG/2 ML SDV ONE (11:35)
[2018-01-27] MEDS ORDERED: PHENYLEPHRINE HCL INJ/PF 10 MG/1 ML SDV ONE (11:35)
[2018-01-27] MEDS ORDERED: OXYTOCIN/NORMAL SALINE 20 UNIT/1,000 ML RTUINJ INJ PRN (11:50)
[2018-01-27] MEDS ORDERED: DEXTROSE 5%-LACTATED RINGERS 1,000 ML IV PRN (11:59)
[2018-01-27] MEDS ORDERED: MORPHINE SULFATE 10 MG/ML INJ IM PRN (12:00)
[2018-01-27] MEDS ORDERED: DIPH/PERTUSS(ACELL)/TETANUS VAC/PF 0.5 ML SYR (>=10YO) IM PRN (12:00)
[2018-01-27] MEDS ORDERED: MEASLES,MUMPS&RUBELLA VACC/PF 0.5 ML VIAL SUBCUT PRN (12:00)
[2018-01-27] MEDS ORDERED: PROMETHAZINE HCL INJ 25 MG/1 ML VIAL IM PRN (12:00)
[2018-01-27] MEDS ORDERED: SIMETHICONE 80 MG TAB.CHEW PO PRN (12:00)
[2018-01-27] MEDS ORDERED: ACETAMINOPHEN 325 MG TABLET PO PRN (12:00)
[2018-01-27] MEDS: IBUPROFEN 800 MG TABLET PO SCH ×3 (12:46→23:49)
[2018-01-27] MEDS: OXYCODONE-ACETAMINOPHEN 5-325 MG TABLET PO PRN ×2 (12:47→21:34)
[2018-01-27] MEDS: DOCUSATE SODIUM 100 MG CAPSULE PO SCH (17:54)
[2018-01-28] MEDS: IBUPROFEN 800 MG TABLET PO SCH ×3 (05:56→18:58)
[2018-01-28 07:17] LABS: HEMATOCRIT 17.1 % (36.0-47.0); MEAN CORPUSCULAR HEMOGLOBIN 24.3 pg (27.0-33.4); MEAN CORPUSCULAR HGB CONC 32.3 g/dL (32.0-36.0); MEAN CORPUSCULAR VOLUME 75 fl (80-97); PLATELET COUNT 256 10^3/uL (150-450); RED BLOOD COUNT 2.27 10^6/uL (3.72-5.28); RED CELL DISTRIBUTION WIDTH 18.6 % (11.5-14.0); WHITE BLOOD COUNT 9.9 10^3/uL (4.0-10.5)
[2018-01-28 07:30] LABS: HEMOGLOBIN 5.5 g/dL (12.0-15.5)
[2018-01-28] MEDS ORDERED: ACETAMINOPHEN 325 MG TABLET PO PRN (08:12)
[2018-01-28] MEDS ORDERED: DIPHENHYDRAMINE HCL 25 MG CAPSULE PO PRN (08:13)
--- NOTE | 2018-01-28 10:08 | PDOC PROGRESS REPORT ---
Subjective-OB Progress Note for:: 01/28/18 Subjective: Day #1 s/p R c/s Pt doing well, up ambulating, lochia is stable, pain well controlled, voiding without difficulty, passing gas. pt denies dizziness or tachycardia Physical Exam (OB) Vital Signs: Temp Pulse Resp BP Pulse Ox 98.2 F 107 H 20 140/74 H 98 01/28/18 07:55 01/28/18 07:55 01/28/18 07:55 01/28/18 07:55 01/28/18 07:55 Intake & Output 01/27/18 01/28/18 01/29/18 06:59 06:59 06:59 Intake Total 1645 Output Total 975 Balance 670 Weight 155.13 kg - PIH/Pre-Eclampsia Headache: Absent Epigastric Pain: No Visual Changes: No - Dressing Removed: No - Medipore cdi Incision: Dressing Closure Type: pressure - Lochia Lochia Amount: Small 10-25 ml Lochia Color: Rubra/Red - Abdomen Description: Soft, Round Hernia Present: No Fundal Description: Firm, Midline Fundal Height: u/u - u/2 Objective-Diagnostic Laboratory: 01/28/18 06:34 01/26/18 01/28/18 11:40 06:34 WBC 9.9 RBC 2.27 L Hgb 5.5 L D Hct 17.1 L MCV 75 L MCH 24.3 L MCHC 32.3 RDW 18.6 H Plt Count 256 Blood Type A POSITIVE Antibody Screen NEGATIVE Assessment and Plan(PN) - Assessment and Plan (1) S/P repeat low transverse Is this a current diagnosis for this admission?: Yes Plan: routine post op care (2) Acute blood loss anemia Is this a current diagnosis for this admission?: Yes Plan: ferrous sulfate increase dietary iron transfuse 2 units prbc rechec h & h 2 hours after - Time Spent with Patient Time with patient: Less than 15 minutes Critical Time spent with patient: Less than 15 minutes Medications reviewed and adjusted accordingly: Yes - Disposition Anticipated Discharge: Home Within: within 24 hours
[2018-01-28] MEDS: PRENATAL VITAMIN W DHA CAPSULE PO SCH (10:42)
[2018-01-28] MEDS: DOCUSATE SODIUM 100 MG CAPSULE PO SCH ×2 (10:42→18:58)
[2018-01-28] MEDS: OXYCODONE-ACETAMINOPHEN 5-325 MG TABLET PO PRN (19:02)
[2018-01-28 19:45] LABS: HEMATOCRIT 18.9 % (36.0-47.0); MEAN CORPUSCULAR HEMOGLOBIN 25.8 pg (27.0-33.4); MEAN CORPUSCULAR VOLUME 76 fl (80-97); PLATELET COUNT 246 10^3/uL (150-450); RED BLOOD COUNT 2.49 10^6/uL (3.72-5.28); RED CELL DISTRIBUTION WIDTH 18.8 % (11.5-14.0); WHITE BLOOD COUNT 9.4 10^3/uL (4.0-10.5)
[2018-01-28 19:53] LABS: HEMOGLOBIN 6.4 g/dL (12.0-15.5)
[2018-01-28] MEDS ORDERED: FUROSEMIDE INJ/PF 20 MG/2 ML SDV IV ONE (20:13)
[2018-01-28] MEDS ORDERED: FAMOTIDINE INJ/PF 20 MG/2 ML SDV IV ONE (21:42)
[2018-01-28] MEDS ORDERED: DIPHENHYDRAMINE HCL 50 MG/ML VIAL ONE (21:42)
[2018-01-29] MEDS: IBUPROFEN 800 MG TABLET PO SCH ×5 (00:26→23:03)
[2018-01-29] MEDS: OXYCODONE-ACETAMINOPHEN 5-325 MG TABLET PO PRN ×2 (05:42→15:12)
[2018-01-29 08:23] LABS: ABSOLUTE EOSINOPHILS # (AUTO) 0.1 10^3/uL (0.0-0.6); ABSOLUTE LYMPHOCYTES (AUTO) 2.1 10^3/uL (0.5-4.7); ABSOLUTE MONOCYTES (AUTO) 0.8 10^3/uL (0.1-1.4); ABSOLUTE NEUT (AUTO) 6.5 10^3/uL (1.7-8.2); BASOPHILS % (AUTO) 0.4 % (0-2); EOSINOPHILS % (AUTO) 0.6 % (0-6); HEMATOCRIT 18.1 % (36.0-47.0); MEAN CORPUSCULAR HEMOGLOBIN 25.3 pg (27.0-33.4); MEAN CORPUSCULAR HGB CONC 33.3 g/dL (32.0-36.0); MEAN CORPUSCULAR VOLUME 76 fl (80-97); MONOCYTES % (AUTO) 8.3 % (3-13); PLATELET COUNT 222 10^3/uL (150-450); RED BLOOD COUNT 2.37 10^6/uL (3.72-5.28); RED CELL DISTRIBUTION WIDTH 18.3 % (11.5-14.0); SEGMENTED NEUTROPHILS % (AUTO) 68.7 % (42-78); TOTAL CELLS COUNTED % (AUTO) 100 %; WHITE BLOOD COUNT 9.5 10^3/uL (4.0-10.5)
[2018-01-29] MEDS ORDERED: ACETAMINOPHEN 325 MG TABLET PO PRN (08:40)
[2018-01-29] MEDS ORDERED: DIPHENHYDRAMINE HCL 25 MG CAPSULE PO PRN (08:40)
[2018-01-29] MEDS: DOCUSATE SODIUM 100 MG CAPSULE PO SCH ×2 (10:35→18:29)
[2018-01-29] MEDS: PRENATAL VITAMIN W DHA CAPSULE PO SCH (10:35)
--- NOTE | 2018-01-29 12:47 | PDOC PROGRESS REPORT ---
Subjective-OB Progress Note for:: 01/29/18 Subjective: s/p r c/s day #2 s/p 2 units prbc yesterday and 1 ordered for today, pt doing well, is not dizzy when up passing gas, tolerating diet, lochia is stable, pain well controlled, voiding without difficulty. Physical Exam (OB) Vital Signs: Temp Pulse Resp BP Pulse Ox 98.4 F 89 20 129/70 H 99 01/29/18 08:04 01/29/18 08:04 01/29/18 08:04 01/29/18 08:04 01/29/18 08:04 Intake & Output 01/28/18 01/29/18 01/30/18 06:59 06:59 06:59 Intake Total 1645 1250 Output Total 975 600 Balance 670 650 - PIH/Pre-Eclampsia DTR's: 2 + Clonus: Negative Headache: Absent Epigastric Pain: No Visual Changes: No - Dressing Removed: No - removed early today by Nhi Bowman RN Incision: Well Approximated Closure Type: Sutures - Lochia Lochia Amount: Scant < 10 ml Lochia Color: Rubra/Red - Abdomen Description: Tender, Soft Hernia Present: No Fundal Description: Firm, Midline Fundal Height: u/u - u/2 Objective-Diagnostic Laboratory: 01/29/18 07:01 01/26/18 01/28/18 01/29/18 11:40 19:25 07:01 WBC 9.4 9.5 RBC 2.49 L 2.37 L Hgb 6.4 L 6.0 L Hct 18.9 L 18.1 L MCV 76 L 76 L MCH 25.8 L 25.3 L MCHC 34.0 33.3 RDW 18.8 H 18.3 H Plt Count 246 222 Seg Neutrophils % 68.7 Lymphocytes % 22.0 Monocytes % 8.3 Eosinophils % 0.6 Basophils % 0.4 Absolute Neutrophils 6.5 Absolute Lymphocytes 2.1 Absolute Monocytes 0.8 Absolute Eosinophils 0.1 Absolute Basophils 0.0 Blood Type A POSITIVE Antibody Screen NEGATIVE 01/29/18 11:12 WBC RBC Hgb Hct MCV MCH MCHC RDW Plt Count Seg Neutrophils % Lymphocytes % Monocytes % Eosinophils % Basophils % Absolute Neutrophils Absolute Lymphocytes Absolute Monocytes Absolute Eosinophils Absolute Basophils Blood Type A POSITIVE Antibody Screen NEGATIVE Assessment and Plan(PN) - Assessment and Plan (1) S/P repeat low transverse Is this a current diagnosis for this admission?: Yes Plan: routine pp care, consider d/c home (2) Acute blood loss anemia Is this a current diagnosis for this admission?: Yes Plan: s/p 2 units prbc yesterday 1 unit pending today, will be d/c home with fe travis, close outpt f/u - Time Spent with Patient Time with patient: Less than 15 minutes Critical Time spent with patient: Less than 15 minutes Medications reviewed and adjusted accordingly: Yes - Disposition Anticipated Discharge: Home Within: within 24 hours
--- NOTE | 2018-01-29 12:51 | PDOC DISCHARGE SUMMARY ---
Final Diagnosis Discharge Date: 01/29/18 - Final Diagnosis (1) S/P repeat low transverse Is this a current diagnosis for this admission?: Yes (2) Acute blood loss anemia Is this a current diagnosis for this admission?: Yes Discharge Data - Discharge Medication Prescriptions: Oxycodone HCl/Acetaminophen [Percocet 5-325 mg Tablet] 2 tab PO Q4HP PRN #30 tablet PRN Reason: Docusate Sodium [Colace 100 mg Capsule] 100 mg PO BID #30 capsule Ferrous Sulfate [Iron] 325 mg PO BID #60 tablet Ibuprofen [Motrin 800 mg Tablet] 800 mg PO Q6 #60 tablet Home Medications: Prenat 115/Iron Fum/Folic/Dss [Pnv-Ferrous Drtcazyj-Tajf-NT] 1 tab PO DAILY Docusate Sodium [Colace 100 mg Capsule] 100 mg PO BID #30 capsule 01/29/18 Ferrous Sulfate [Iron] 325 mg PO BID #60 tablet 01/29/18 Ibuprofen [Motrin 800 mg Tablet] 800 mg PO Q6 #60 tablet 01/29/18 Oxycodone HCl/Acetaminophen [Percocet 5-325 mg Tablet] 2 tab PO Q4HP PRN #30 tablet 01/29/18 Gestational Age: 39 Reason(s) for Admission: Ceasarean Section-Repeat Procedures: NST Intrapartum Procedure(s): : Low Cervical, Transverse Complication(s): Hemorrhage-Uterine Atony - Data Baby 1 Male at 1 minute: 4 at 5 minutes: 8 Weight: 3.827 kg Home with Mother: Yes Complications: No - Diagnosis Test Laboratory: Temp Pulse Resp BP Pulse Ox 98.4 F 89 20 129/70 H 99 01/29/18 08:04 01/29/18 08:04 01/29/18 08:04 01/29/18 08:04 01/29/18 08:04 01/26/18 01/26/18 01/28/18 11:15 11:40 06:34 RBC 3.92 2.27 L Hgb 9.4 L 5.5 L D Hct 29.6 L 17.1 L Urine Opiates Screen NEGATIVE 01/28/18 01/29/18 19:25 07:01 RBC 2.49 L 2.37 L Hgb 6.4 L 6.0 L Hct 18.9 L 18.1 L Urine Opiates Screen - Discharge information/Instructions Discharge Activity: Activity As Tolerated, No Driving, Pelvic Rest, No tub bath Discharge Diet: Regular Disposition: HOME, SELF-CARE Follow up with: [facility] in: 1
[2018-01-29 18:31] LABS: MEAN CORPUSCULAR HEMOGLOBIN 26.4 pg (27.0-33.4); MEAN CORPUSCULAR VOLUME 78 fl (80-97); PLATELET COUNT 259 10^3/uL (150-450); RED BLOOD COUNT 2.71 10^6/uL (3.72-5.28); RED CELL DISTRIBUTION WIDTH 18.6 % (11.5-14.0); WHITE BLOOD COUNT 10.3 10^3/uL (4.0-10.5)
[2018-01-29 18:32] LABS: HEMOGLOBIN 7.1 g/dL (12.0-15.5)
[2018-01-30] MEDS: IBUPROFEN 800 MG TABLET PO SCH (05:24)
[2018-01-30] MEDS: OXYCODONE-ACETAMINOPHEN 5-325 MG TABLET PO PRN (05:26)
[2018-01-30] MEDS: PRENATAL VITAMIN W DHA CAPSULE PO SCH (09:30)
[2018-01-30] MEDS: DOCUSATE SODIUM 100 MG CAPSULE PO SCH (09:30)
[2018-01-30 11:40] VITALS: BP 147/75
== END 2018-01-30 12:03 | disposition home or self-care (01) | DRG 765 ==
LOC: INOR 04:54 → 2S 06:27
PROVIDERS: ADMIT Obstetrics & Gynecology Gynecology; ATTEND Obstetrics & Gynecology Gynecology
PROC: 10D00Z1 Extraction of Products of Conception, Low, Open Approach (ICD-10-PCS; principal; 2018-01-28)
PROC: 0W3J0ZZ Control Bleeding in Pelvic Cavity, Open Approach (ICD-10-PCS; 2018-01-28)
PROC: 30233N1 Transfusion of Nonautologous Red Blood Cells into Peripheral Vein, Percutaneous Approach (ICD-10-PCS; 2018-01-28)
DX: O34.211 Maternal care for low transverse scar from previous cesarean delivery (principal); Z68.42 Body mass index [BMI] 45.0-49.9, adult; O72.1 Other immediate postpartum hemorrhage; N85.8 Other specified noninflammatory disorders of uterus; O99.214 Obesity complicating childbirth; E66.01 Morbid (severe) obesity due to excess calories; O99.62 Diseases of the digestive system complicating childbirth; K66.0 Peritoneal adhesions (postprocedural) (postinfection); Z3A.39 39 weeks gestation of pregnancy; Z37.0 Single live birth
CPT/HCPCS: 1961; 36415; 36430; 59025; 80307; 81001; 85025; 85027; 86850; 86900; 86901; 86920; 94799; J0131; J0456; J1100; J1200; J1885; J1940; J2250; J2270; J2370; J2405; J2590; J2765; J3010; J3490; J7060; J7120; P9016; S0028

== ENCOUNTER 2018-04-08 19:26 | Emergency (ER) | payer MEDICAID ==
--- NOTE | 2018-04-08 20:59 | RADIOLOGY REPORT (SQ) ---
EXAM DESCRIPTION: KNEE RIGHT 4 VIEWS COMPLETED DATE/TIME: 04/08/2018 8:39 pm REASON FOR STUDY: fall hit knee pain COMPARISON: None. NUMBER OF VIEWS: Four views. TECHNIQUE: AP, lateral, and both oblique radiographic images acquired of the right knee. LIMITATIONS: None. FINDINGS: MINERALIZATION: Normal. BONES: Deformity of the lateral tibial plateau. Most likely old. JOINT: No effusion. SOFT TISSUES: No soft tissue swelling. No radio-opaque foreign body. OTHER: No other significant finding. IMPRESSION: Deformity of the lateral tibial plateau which is most likely old. No definite acute fra cture. TECHNICAL DOCUMENTATION: JOB ID: [id number] [employer]- All Rights Reserved Reading location - IP/workstation name: [email or web address]
[2018-04-08] MEDS ORDERED: IBUPROFEN 800 MG TABLET PO ONE (21:01)
--- NOTE | 2018-04-08 21:03 | ER Document Report ---
ED Extremity Problem, Lower - General Chief Complaint: Knee Injury Stated Complaint: FALL KNEE AND BACK PAIN Time Seen by Provider: 04/08/18 19:58 Mode of Arrival: Ambulatory Information source: Patient Notes: 27-year-old female presents to ED for complaint of right knee pain after she tripped in the [employer] store and fell. She states she tripped over item that was in the [place]. She denies hitting her head or neck. She states she did just have a baby 2 months ago. She states it was just before coming to the emergency room. She has some minimal swelling to the right knee but no bruising or lacerations. Patient is alert and oriented respirations regular and unlabored speaking in full sentences. TRAVEL OUTSIDE OF THE [place] IN LAST 30 DAYS: No - HPI Patient complains to provider of: Injury, Pain, Swelling Location: Knee - Fell on her left knee Occurred: Just prior to arrival Where: Public place Onset/Duration: Gradual Quality of pain: Achy, Sharp Severity: Moderate Pain Level: 3 Context: Fell Recent injury: Yes Associated symptoms: Painful ambulation Exacerbated by: Movement, Walking Relieved by: Elevation, Ice, Rest - Related Data Allergies/Adverse Reactions: furosemide [From Lasix] Adverse Reaction (Mild, Verified 01/29/18 02:40) Hives Past Medical History - General Information source: Patient - Social History Smoking Status: Former Smoker Cigarette use (# per day): No Chew tobacco use (# tins/day): No Smoking Education Provided: No Frequency of alcohol use: None Drug Abuse: None Lives with: Other - Lives with her son's grandmother Family History: Reviewed & Not Pertinent Patient has suicidal ideation: No Patient has homicidal ideation: No - Past Medical History Cardiac Medical History: Reports: None Pulmonary Medical History: Reports: None EENT Medical History: Reports: None Neurological Medical History: Reports: None Endocrine Medical History: Reports: None Renal/ Medical History: Reports: None Malignancy Medical History: Reports: None GI Medical History: Reports: Hx Gastroesophageal Reflux Disease - ACID REFLUX Musculoskeletal Medical History: Reports None Skin Medical History: Reports None Psychiatric Medical History: Reports: Hx Post Traumatic Stress Disorder Traumatic Medical History: Reports: None Infectious Medical History: Reports: None Past Surgical History: Reports: Hx Section - x1 - Immunizations Hx Diphtheria, Pertussis, Tetanus Vaccination: Yes - 09/26/12 Review of Systems - Review of Systems Constitutional: No symptoms reported EENT: No symptoms reported Cardiovascular: No symptoms reported Respiratory: No symptoms reported Gastrointestinal: No symptoms reported Genitourinary: No symptoms reported Female Genitourinary: No symptoms reported Musculoskeletal: Joint pain - Right knee, Joint swelling - Minimal right knee Skin: No symptoms reported Hematologic/Lymphatic: No symptoms reported Neurological/Psychological: No symptoms reported -: Yes All other systems reviewed and negative Physical Exam - Vital signs Vitals: Temp Pulse Resp BP Pulse Ox 98.8 F 80 20 144/90 H 98 04/08/18 19:41 04/08/18 19:41 04/08/18 19:41 04/08/18 19:41 04/08/18 19:41 Interpretation: Normal - General General appearance: Appears well, Alert - HEENT Head: Normocephalic, Atraumatic Eyes: Normal Pupils: PERRL - Respiratory Respiratory status: No respiratory distress Chest status: Nontender Breath sounds: Normal Chest palpation: Normal - Cardiovascular Rhythm: Regular Heart sounds: Normal auscultation Murmur: No - Abdominal Inspection: Normal Distension: No distension Bowel sounds: Normal Tenderness: Nontender Organomegaly: No organomegaly - Back Back: Normal, Nontender - Extremities General upper extremity: Normal inspection, Nontender, Normal color, Normal ROM , Normal temperature General lower extremity: Normal color, Normal temperature. No: Dudley's sign Knee: Tender, Pain with ROM, Patellar tendon intact, Tender joint line, Unable to bear weight - Due to pain. No: Abrasion, Deformity, Dislocation, Drawer's test instability, Ecchymosis, Instability, Joint effusion, Laceration, Laxity with valgus stress, Laxity with varus stress, Popliteal fossa tender - Neurological Neuro grossly intact: Yes Cognition: Normal Orientation: AAOx4 [place] Coma Scale Eye Opening: Spontaneous Steven Coma Scale Verbal: Oriented Steven Coma Scale Motor: Obeys Commands Steven Coma Scale Total: 15 Speech: Normal Motor strength normal: LUE, RUE, LLE, RLE Sensory: Normal - Psychological Associated symptoms: Normal affect, Normal mood - Skin Skin Temperature: Warm Skin Moisture: Dry Skin Color: Normal Course - Re-evaluation Re-evalutation: 04/08/18 21:19 Discussed the x-ray results with patient and written report given to the patient to follow-up with orthopedics. Discussed the written results of the x- ray to the knee with . He recommended placing a knee immobilizer on patient and provided crutches. He also recommended that she follow-up with orthopedics. He states patient is able to walk on the foot if it does not increase pain but if walking increases the pain in the patient needs to do not bear weight on this leg. Patient given instructions for elevation ice ibuprofen [place] and weightbearing restrictions. Patient verbalized understanding of instructions and agreement with treatment plan. - Vital Signs Vital signs: Temp Pulse Resp BP Pulse Ox 98.8 F 61 16 137/86 H 97 04/08/18 19:41 04/08/18 21:00 04/08/18 21:00 04/08/18 21:00 04/08/18 21:00 - Diagnostic Test Radiology reviewed: Image reviewed, Reports reviewed Procedures - Immobilization Right Knee Time completed: 21:25 Pre-Proc Neuro Vasc Exam: Normal Immobilizer type: Crutches, Knee immobilizer Performed by: PCT Post-Proc Neuro Vasc Exam: Normal Alignment checked and good: Yes Discharge - Discharge Clinical Impression: Contusion of right knee, initial encounter, Tibial plateau abnormality right Condition: Stable Disposition: HOME, SELF-CARE Additional Instructions: SUSPECTED INTERNAL KNEE INJURY: The examiner of your injured knee suspects an internal injury to the cartilage or internal ligaments. This must be further investigated by an operations systems specialist. The knee should be protected, ice packed, and elevated while awaiting your follow-up exam by the orthopedist. If there is severe swelling, severe pain, or any new symptoms while awaiting your exam, you should call the orthopedist. (If he/she is unavailable, call us or return for re-examination.) The x-ray shows a tibial plateau abnormality which is the weightbearing bone in your lower leg the abnormality is at the knee joint. The radiologist reads this as an old injury. Because you have a new injury and he states he do not have an old injury we will put a knee immobilizer on your knee give you crutches and have you follow-up with orthopedics. You can walk if it does not increase your pain. If the pain is increased with walking do not walk into you follow-up with orthopedics. KNEE IMMOBILIZING SPLINT: The knee immobilizing splint will protect the injury while healing begins. This type of splint does not allow the knee to bend at all. No running or sports will be possible. If the splint allows painfree walking, it's giving adequate protection. If there is still significant pain, crutches may be needed as well. Don't do anything that hurts. Adjusted the splint, if necessary. The stiffeners on the sides are attached with Velcro, so they can be easily moved to adjust for thigh and calf size. If you need help with these adjustments, come back. You will lose muscle strength in the thigh while using this splint. The doctor will advise you if it's safe to do isometric knee exercises while you use it. USE OF CRUTCHES: The doctor has recommended that you not bear weight at this time. You will need to use crutches. Adjust the crutches so the tops come to about two inches under the armpit while you are standing upright. Use your hands -- not your armpits -- to support your weight. To get into a chair, support yourself with one crutch on the injured side. Hold the chair with the other hand, then lower yourself while putting all your weight on the good leg. Going up stairs is `good leg up, step up, then bring up crutches and bad leg.' Down stairs is `bad leg and crutches down, then bring good leg down.' If you develop numbness or swelling in an arm or hand, you are using the crutches incorrectly. Return if you are having any problems with the crutches. ICE & ELEVATION: Apply ice packs frequently against the painful area. Many different schedules are recommended, such as "20 minutes on, 20 minutes off" or "one hour ice, two hours rest." If you need to work, you may need to go longer between ice treatments. You should plan to have the area ice packed AT LEAST one- fourth of the time. The ice should be applied over the wrap, tape, or splint, or over a layer of cloth -- not directly against the skin. Some ice bags have a built-in cloth and can be put directly on the skin. Your injured part should be elevated as much as possible over the next 48 hours. Try to keep the injury above the level of the heart. Avoid use of the injured area. Elevation and rest will decrease the swelling. USE OF [id number] IBUPROFEN: Ibuprofen (Advil, Nuprin, Medipren, Motrin IB) is a medication for fever and pain control. In addition, it has anti- inflammatory effects which may be beneficial, especially in the treatment of injuries. It's best to take ibuprofen with food. Persons with ulcer disease or allergy to aspirin should notify their physician of this before taking ibuprofen. Ibuprofen can be given every four to six hours, for a total of four doses daily. Age Pain or fever dose Antiinflammatory dose 6-8 yr 200 mg (1 tab) 200 mg (1 tab) 9-11 yr 200 mg (1 tab) 200-400 mg (1-2 tab) 11-14 yr 200-400 mg (1-2 tab) 400 mg (2 tab) 15-adult 400 mg (2 tab) 600 mg (3 tab) Oral Narcotic Medication You have been given a prescription for pain control. This medication is a narcotic. It's best taken with food, as nausea can result if taken on an empty stomach. Don't operate machinery or drive within six hours of taking this medication. Do not combine this medicine with alcohol, or with any medication which can cause sedation (such as cold tablets or sleeping pills) unless you get permission from the physician. Narcotics tend to cause constipation. If possible, drink plenty of fluids and eat a diet high in fiber and fruits. FOLLOW-UP CARE: If you have been referred to a physician for follow-up care, call the physician s office for an appointment as you were instructed or within the next two days. If you experience worsening or a significant change in your symptoms, notify the physician immediately or return to the Emergency Department at any time for re-evaluation. Please follow up with the Orthopedics [facility] [address] [place] [id number] Prescriptions: Hydrocodone/Acetaminophen [[place] 5-325 mg Tablet] 1 tab PO Q6HP PRN #7 tablet PRN Reason: Forms: Elevated Blood Pressure, Return to Work Referrals: KAREN REED MD [Primary Care Provider] - Follow up as needed [facility] [Provider Group] - 04/11/18
[2018-04-08 21:42] VITALS: BP 137/86
== END 2018-04-08 21:30 | disposition home or self-care (01) ==
LOC: ER 19:26
DX: S80.01XA Contusion of right knee, initial encounter (principal); M21.861 Other specified acquired deformities of right lower leg; M25.561 Pain in right knee; M54.9 Dorsalgia, unspecified; W01.0XXA Fall on same level from slipping, tripping and stumbling without subsequent striking against object, initial encounter; Y92.512 Supermarket, store or market as the place of occurrence of the external cause; Z87.891 Personal history of nicotine dependence
CPT/HCPCS: 99283; 73564; L1830; J3490

== ENCOUNTER 2018-05-08 13:39 | Emergency (ER) | payer MEDICAID ==
--- NOTE | 2018-05-08 14:11 | ER Document Report ---
ED General - General Chief Complaint: Back Pain Stated Complaint: BACK AND KNEE PAIN Time Seen by Provider: 05/08/18 14:00 Notes: Patient presents with 1 month of lower back pain. She states that she fell on accident slipping and dollars twice a month ago was evaluated here at this emergency department was sent home with lower back pain. She states she recently started a new job and she has been sent home the last 2 days due to her lower back pain. She denies any recent falls but states that she has been on her feet longer than she normally is on a daily basis. Denies any bowel or bladder incontinence denies any saddle anesthesia or weakness of the bilateral lower extremities. She complains of right knee pain is able to ambulate without difficulty. She denies any dysuria she is currently menstruating at this time TRAVEL OUTSIDE OF THE [place] IN LAST 30 DAYS: No - Related Data Allergies/Adverse Reactions: furosemide [From Lasix] Adverse Reaction (Mild, Verified 01/29/18 02:40) Hives Past Medical History - Social History Family History: Reviewed & Not Pertinent - Past Medical History Cardiac Medical History: Denies: Hx Hypertension Pulmonary Medical History: Denies: Hx Asthma, Hx Tuberculosis Neurological Medical History: Denies: Hx Seizures Renal/ Medical History: Denies: Hx Kidney Stones, Hx Peritoneal Dialysis GI Medical History: Reports: Hx Gastroesophageal Reflux Disease - ACID REFLUX. Denies: Hx Hiatal Hernia, Hx Ulcer Psychiatric Medical History: Reports: Hx Post Traumatic Stress Disorder Denies: Hx Bipolar Disorder, Hx Depression, Hx Schizophrenia Past Surgical History: Reports: Hx Section - x1 - Immunizations Hx Diphtheria, Pertussis, Tetanus Vaccination: Yes - 09/26/12 Review of Systems - Review of Systems Constitutional: No symptoms reported EENT: No symptoms reported Cardiovascular: No symptoms reported Respiratory: No symptoms reported Gastrointestinal: No symptoms reported Genitourinary: No symptoms reported Female Genitourinary: No symptoms reported Musculoskeletal: See HPI Skin: No symptoms reported Hematologic/Lymphatic: No symptoms reported Neurological/Psychological: No symptoms reported Physical Exam - Vital signs Vitals: Temp Pulse Resp BP Pulse Ox 98.2 F 77 16 137/86 H 96 05/08/18 13:44 05/08/18 13:44 05/08/18 13:44 05/08/18 13:44 05/08/18 13:44 - General General appearance: Appears well, Alert - HEENT Head: Normocephalic, Atraumatic - Respiratory Respiratory status: No respiratory distress - Cardiovascular Rhythm: Regular Heart sounds: Normal auscultation Murmur: No - Abdominal Inspection: Normal Distension: No distension - Back Back: Normal. No: Deformity/step-off - Minor tenderness to palpation of bilateral paraspinal lumbar musculature, CVA tenderness, Vertebra tenderness - Neurological Neuro grossly intact: Yes Cognition: Normal Orientation: AAOx4 Course - Re-evaluation Re-evalutation: 05/08/18 15:30 Patient's lumbar spine shows no acute abnormalities with no signs of infection on urinalysis and test negative. Her symptoms have been waxing and waning since approximately 4 months ago therefore x-ray was performed to rule out any occult fracture or spondylolisthesis. Patient's neurologically intact. Discussed with patient will provide 5 days of steroids. Also discussed stretching weight management and heating pads. No concerning findings feel there is any infectious etiology to patient's pain. - Vital Signs Vital signs: Temp Pulse Resp BP Pulse Ox 98.2 F 77 16 137/86 H 96 05/08/18 13:44 05/08/18 13:44 05/08/18 13:44 05/08/18 13:44 05/08/18 13:44 - Laboratory Laboratory results interpreted by me: 05/08/18 14:15 Urine Protein 100 H Urine Blood LARGE H Urine Urobilinogen 2.0 H Ur Leukocyte Esterase TRACE H Discharge - Discharge Clinical Impression: Lumbar spine strain Qualifiers: Encounter type: subsequent encounter Qualified Code(s): S39.012D - Strain of muscle, fascia and tendon of lower back, subsequent encounter Condition: Good Disposition: HOME, SELF-CARE Instructions: Low Back Pain ([facility]), Ice Packs ([facility]), Muscle Strain ([facility]), Warm Packs ([facility]) Prescriptions: Prednisone [Deltasone 20 mg Tablet] 40 mg PO DAILY 5 Days #10 tablet Referrals: KAREN REED MD [Primary Care Provider] - Follow up as needed
[2018-05-08 14:49] LABS: APPEARANCE,URINE CLOUDY; BILIRUBIN,URINE NEGATIVE (NEGATIVE); GLUCOSE, URINE NEGATIVE (NEGATIVE); KETONES,URINE NEGATIVE (NEGATIVE); LEUKOCYTE ESTERASE,URINE TRACE (NEGATIVE); NITRITE,URINE NEGATIVE (NEGATIVE); PROTEIN,URINE 100 mg/dL (NEGATIVE); URINE SPECIFIC GRAVITY 1.028
[2018-05-08 14:50] LABS: COLOR,URINE RED
[2018-05-08] MEDS ORDERED: KETOROLAC TROMETHAMINE 60 MG/2 ML SDV IM ONE (14:50)
--- NOTE | 2018-05-08 15:22 | RADIOLOGY REPORT (SQ) ---
EXAM DESCRIPTION: L SPINE WHOLE COMPLETED DATE/TIME: 05/08/2018 3:11 pm REASON FOR STUDY: low back pain >4 weeks COMPARISON: None. NUMBER OF VIEWS: Five views including obliques. TECHNIQUE: AP, lateral, oblique, and sacral radiographic images acquired of the lumbar spine. LIMITATIONS: None. FINDINGS: MINERALIZATION: Normal. SEGMENTATION: Normal. No transitional anatomy. ALIGNMENT: Normal. VERTEBRAE: Maintained height. No fracture or worrisome bone lesion. DISCS: Preserved height. No significant osteophytes or end plate irregularity. POSTERIOR ELEMENTS: Pedicles and facets are intact. No pars defect or posterior arch defects. HARDWARE: None in the spine. PARASPINAL SOFT TISSUES: Normal. PELVIS: Intact as visualized. No fractures or worrisome bone lesions. SI joints intact. OTHER: No other significant finding. IMPRESSION: NORMAL 5 VIEW LUMBAR SPINE. TECHNICAL DOCUMENTATION: JOB ID: [id number] [employer]- All Rights Reserved Reading location - IP/workstation name: [email or web address]
[2018-05-08] MEDS ORDERED: ACETAMINOPHEN 325 MG TABLET PO ONE (15:31)
[2018-05-08] MEDS ORDERED: ACETAMINOPHEN 325 MG TABLET ONE (15:33)
[2018-05-08 15:49] VITALS: BP 149/94
== END 2018-05-08 15:44 | disposition home or self-care (01) ==
LOC: ER 13:39
DX: S39.012D Strain of muscle, fascia and tendon of lower back, subsequent encounter (principal); W19.XXXD Unspecified fall, subsequent encounter
CPT/HCPCS: 99283; 96372; 81025; 81001; 72110; J3490; J1885

== ENCOUNTER 2019-01-04 10:33 | Emergency (ER) | payer SELFPAY ==
--- NOTE | 2019-01-04 11:03 | ER Document Report ---
ED General - General Chief Complaint: Abdominal Pain Stated Complaint: VOMITING Time Seen by Provider: 01/04/19 10:46 Primary Care Provider: KAREN REED MD [ACTIVE STAFF] - Follow up in 1 week Mode of Arrival: Ambulatory Information source: Patient Notes: Patient presents emergency department with complaints of abdominal pain nausea vomiting for the past 4 days. Reports she feels like she might be AGAIN. from last January. . Patient is sexually active without protection. TRAVEL OUTSIDE OF THE [place] IN LAST 30 DAYS: No - HPI Onset: Other - 4DAYS Onset/Duration: Persistent Quality of pain: Achy Severity: Severe Pain Level: 5 Associated symptoms: Nausea, Vomiting Exacerbated by: Denies Relieved by: Denies Similar symptoms previously: No Recently seen / treated by doctor: No - Related Data Allergies/Adverse Reactions: furosemide [From Lasix] Adverse Reaction (Mild, Verified 01/29/18 02:40) Hives Past Medical History - General Information source: Patient Last Menstrual Period: OCT - Social History Smoking Status: Never Smoker Cigarette use (# per day): No Frequency of alcohol use: None Drug Abuse: None Lives with: Family Family History: Reviewed & Not Pertinent Patient has suicidal ideation: No Patient has homicidal ideation: No - Past Medical History Cardiac Medical History: Denies: Hx Hypertension Pulmonary Medical History: Denies: Hx Asthma, Hx Tuberculosis Neurological Medical History: Denies: Hx Seizures Renal/ Medical History: Denies: Hx Kidney Stones, Hx Peritoneal Dialysis GI Medical History: Reports: Hx Gastroesophageal Reflux Disease - ACID REFLUX. Denies: Hx Hiatal Hernia, Hx Ulcer Psychiatric Medical History: Reports: Hx Post Traumatic Stress Disorder Denies: Hx Bipolar Disorder, Hx Depression, Hx Schizophrenia Past Surgical History: Reports: Hx Section - x1 - Immunizations Hx Diphtheria, Pertussis, Tetanus Vaccination: Yes - 09/26/12 Review of Systems - Review of Systems Notes: Review HPI for review of systems., All other systems negative Physical Exam - Vital signs Vitals: Temp Pulse Resp BP Pulse Ox 99.1 F 99 18 129/80 H 96 01/04/19 10:39 01/04/19 10:39 01/04/19 10:39 01/04/19 10:39 01/04/19 10:39 - Notes Notes: PHYSICAL EXAMINATION: GENERAL: Well-appearing and in no acute distress HEAD: Atraumatic, normocephalic. EYES: Pupils equal round extraocular movements intact, sclera anicteric, conjunctiva are normal. ENT: nares patent, oropharynx clear without exudates. Moist mucous membranes. NECK: Normal range of motion, supple without lymphadenopathy LUNGS: CTAB and equal. No wheezes rales or rhonchi. HEART: Regular rate and rhythm without murmurs ABDOMEN: Soft, no tenderness with palpation. No guarding, no rebound EXTREMITIES: Normal range of motion PSYCH: Normal mood, normal affect. SKIN: Warm, Dry, normal turgor, no rashes or lesions noted Course - Re-evaluation Re-evalutation: 01/04/19 19:49 the patient presents with abdominal pain without signs of peritonitis or other life threatening or serious etiology. The patient appears stable for discharge and has been instructed to return immediately if the symptoms worsen in any way or in 8-12 hours if not improved for reevaluation. The patient has been instructed to return if the symptoms worsen or change in any way. - Vital Signs Vital signs: Temp Pulse Resp BP Pulse Ox 98.3 F 101 H 20 138/89 H 100 01/04/19 15:13 01/04/19 15:13 01/04/19 15:13 01/04/19 15:13 01/04/19 15:13 - Laboratory Result Diagrams: 01/04/19 11:50 01/04/19 11:50 Laboratory results interpreted by me: 01/04/19 01/04/19 11:50 11:50 Hgb 10.8 L Hct 32.8 L MCV 76 L MCH 25.1 L RDW 17.3 H Sodium 136.9 L Est GFR (Non-Af Amer) 59 L AST 50 H ALT 58 H Albumin 3.4 L - Diagnostic Test Radiology reviewed: Image reviewed, Reports reviewed - ovarian cyst Discharge - Discharge Clinical Impression: Nausea Abdominal pain Qualifiers: Abdominal location: unspecified location Qualified Code(s): R10.9 - Unspecified abdominal pain Condition: Stable Disposition: HOME, SELF-CARE Instructions: Abdominal Pain ([facility]), Antinausea Medication ([facility]) Additional Instructions: *You have been evaluated for abdominal pain, nausea *You are not . *The US showed a possible cyst. Pllease follow up for recheck ultrasound per your BONE DENSITY TECHNICIAN. *Take medication as prescribedone * Follow up with a provider within one week *Return to ED for worsening condition, changes, needs *Return to ED if not better in 24 hours Referrals: KAREN REED MD [ACTIVE STAFF] - Follow up in 1 week
[2019-01-04 12:06] LABS: ABSOLUTE MONOCYTES (AUTO) 0.8 10^3/uL (0.1-1.4); BASOPHILS % (AUTO) 0.4 % (0-2); HEMATOCRIT 32.8 % (36.0-47.0); HEMOGLOBIN 10.8 g/dL (12.0-15.5); LYMPHOCYTES % (AUTO) 14.9 % (13-45); MEAN CORPUSCULAR HEMOGLOBIN 25.1 pg (27.0-33.4); MEAN CORPUSCULAR HGB CONC 33.1 g/dL (32.0-36.0); MEAN CORPUSCULAR VOLUME 76 fl (80-97); MONOCYTES % (AUTO) 11.9 % (3-13); PLATELET COUNT 189 10^3/uL (150-450); RED BLOOD COUNT 4.32 10^6/uL (3.72-5.28); RED CELL DISTRIBUTION WIDTH 17.3 % (11.5-14.0); SEGMENTED NEUTROPHILS % (AUTO) 72.8 % (42-78); TOTAL CELLS COUNTED % (AUTO) 100 %; WHITE BLOOD COUNT 6.8 10^3/uL (4.0-10.5)
[2019-01-04 12:30] LABS: ALANINE AMINOTRANSFERASE 58 U/L (9-52); ALBUMIN 3.4 g/dL (3.5-5.0); ALKALINE PHOSPHATASE 73 U/L (38-126); ANION GAP 10 (5-19); ASPARTATE AMINO TRANSFERASE 50 U/L (14-36); BILIRUBIN,DIRECT 0.4 mg/dL (0.0-0.4); BLOOD UREA NITROGEN 11 mg/dL (7-20); CALCIUM 8.8 mg/dL (8.4-10.2); CARBON DIOXIDE 26 mmol/L (22-30); CHLORIDE 101 mmol/L (98-107); GLUCOSE 107 mg/dL (75-110); POTASSIUM 3.8 mmol/L (3.6-5.0); SODIUM 136.9 mmol/L (137-145); TOTAL PROTEIN 7.1 g/dL (6.3-8.2)
--- NOTE | 2019-01-04 14:00 | RADIOLOGY REPORT (SQ) ---
EXAM DESCRIPTION: U/S NON OB PEL TV W/DOPPLER COMPLETED DATE/TIME: 01/04/2019 1:14 pm REASON FOR STUDY: ABDOMINAL PAIN, THINKS SHE IS PREG, LMP FE COMPARISON: None. TECHNIQUE: Dynamic and static grayscale images acquired of the pelvis via transvaginal approach and recorded on PACS. Additional selected color Doppler and spectral images recorded. LIMITATIONS: None. FINDINGS: UTERUS: Contour normal. No mass. ENDOMETRIAL STRIPE: No focal or generalized thickening. No masses. CERVIX: Nabothian cysts. RIGHT OVARY AND DOPPLER: A 2.0 x 1.8 x 1.9 cm structure within the right ovary with irregular border s and internal echoes. Considerations for this finding includes a hemorrhagic cyst which may be reso lving. LEFT OVARY AND DOPPLER: Normal size. No worrisome masses. Normal arterial vascular flow without evide nce for torsion. FREE FLUID: Small amount of free fluid in the cul-de-sac. OTHER: No other significant finding. MEASUREMENTS: UTERUS: 10.2 x 5.3 x 5.2 cm ENDOMETRIAL STRIPE: 8.9 mm RIGHT OVARY: 4.0 x 2.8 x 2.7 cm LEFT OVARY: 2.8 x 2.3 x 1.7 cm IMPRESSION: 1. A complex right ovarian cyst with irregular borders and internal echoes, may be on t he basis of a hemorrhagic cyst. Correlation suggested, correlation with lab values and a short term follow-up examination if clinically indicated. TECHNICAL DOCUMENTATION: JOB ID: [id number] [employer]- All Rights Reserved Rev-02/11 Reading location - IP/workstation name: [email or web address]
[2019-01-04] MEDS ORDERED: ONDANSETRON 4 MG TAB.RAPDIS PO ONE (15:00)
[2019-01-04] MEDS ORDERED: ONDANSETRON ODT 4 MG TAB (6 TAB/ER DISP) PO PRN (15:02)
[2019-01-04 15:14] VITALS: BP 138/89
== END 2019-01-04 15:20 | disposition home or self-care (01) ==
LOC: ER 10:33
DX: N83.201 Unspecified ovarian cyst, right side (principal); R11.2 Nausea with vomiting, unspecified; R10.9 Unspecified abdominal pain
CPT/HCPCS: 99284; 36415; 84702; 85025; 80053; 76830; 93976; S0119

== ENCOUNTER 2019-01-05 20:07 | Emergency (ER) | payer SELFPAY ==
[2019-01-05 21:03] VITALS: BP 139/70
== END 2019-01-05 21:38 | disposition left against medical advice (07) ==
LOC: ER 20:07
DX: Z53.21 Procedure and treatment not carried out due to patient leaving prior to being seen by health care provider (principal); R10.9 Unspecified abdominal pain

== ENCOUNTER 2019-01-06 15:52 | Emergency (ER) | payer SELFPAY ==
[2019-01-06] MEDS ORDERED: ONDANSETRON HCL INJ/PF 4 MG/2 ML SDV IV ONE (16:11)
--- NOTE | 2019-01-06 16:13 | ER Document Report ---
ED Medical Screen (RME) - General Chief Complaint: Flu Symptoms Stated Complaint: VOMITTING Time Seen by Provider: 01/06/19 16:11 TRAVEL OUTSIDE OF THE [place] IN LAST 30 DAYS: No - HPI Notes: 01/06/19 16:11 Patient is a 28-year-old female who presents emergency department complaining of generalized abdominal pain with associated nausea, vomiting, and diarrhea over the past 6 days. She was evaluated 2 days ago and was diagnosed with an ovarian cyst on the right side. She has had decreased p.o. intake. Pain does not radiate. No other concerns or complaints. Denies SLAUGHTER, fever, neck pain, URI, CP, SOB, Abd pain, or rash. I have treated and performed a rapid initial assessment of this patient. A comprehensive ED assessment and evaluation of the patient, analysis of test results and completion of medical decision making process will be conducted by additional ED providers. PHYSICAL EXAMINATION: GENERAL: Well-appearing, well-nourished and in no acute distress. A&Ox4. Answers questions appropriately. LUNGS: Breath sounds clear to auscultation bilaterally and equal. No wheezes rales or rhonchi. HEART: Regular rate and rhythm without murmurs, rubs, gallops. ABDOMEN: Soft, nondistended abdomen. No guarding, no rebound. Normal bowel sounds present. No CVA tenderness bilaterally. + mild generalized tenderness (cannot elicit thorough abd exam w/o table, however). - Related Data Allergies/Adverse Reactions: furosemide [From Lasix] Adverse Reaction (Mild, Verified 01/06/19 15:54) Hives Past Medical History - Past Medical History Cardiac Medical History: Denies: Hx Hypertension Pulmonary Medical History: Denies: Hx Asthma, Hx Tuberculosis Neurological Medical History: Denies: Hx Seizures Renal/ Medical History: Denies: Hx Kidney Stones, Hx Peritoneal Dialysis GI Medical History: Reports: Hx Gastroesophageal Reflux Disease - ACID REFLUX. Denies: Hx Hiatal Hernia, Hx Ulcer Psychiatric Medical History: Reports: Hx Post Traumatic Stress Disorder Denies: Hx Bipolar Disorder, Hx Depression, Hx Schizophrenia Past Surgical History: Reports: Hx Section - x1 - Immunizations Hx Diphtheria, Pertussis, Tetanus Vaccination: Yes - 09/26/12 History of Influenza Vaccine for 06/2017 - 11/2017 Season: Unknown
[2019-01-06] MEDS: NORMAL SALINE 1000 ML 1,000 ML IV PRN ×2 (16:59→18:30)
[2019-01-06 17:12] LABS: ABSOLUTE LYMPHOCYTES (AUTO) 1.6 10^3/uL (0.5-4.7); ABSOLUTE NEUT (AUTO) 5.1 10^3/uL (1.7-8.2); BASOPHILS % (AUTO) 0.4 % (0-2); EOSINOPHILS % (AUTO) 0.2 % (0-6); HEMATOCRIT 32.1 % (36.0-47.0); HEMOGLOBIN 10.5 g/dL (12.0-15.5); LYMPHOCYTES % (AUTO) 20.8 % (13-45); MEAN CORPUSCULAR HEMOGLOBIN 24.7 pg (27.0-33.4); MEAN CORPUSCULAR HGB CONC 32.8 g/dL (32.0-36.0); MEAN CORPUSCULAR VOLUME 75 fl (80-97); MONOCYTES % (AUTO) 13.2 % (3-13); PLATELET COUNT 228 10^3/uL (150-450); RED BLOOD COUNT 4.27 10^6/uL (3.72-5.28); RED CELL DISTRIBUTION WIDTH 17.2 % (11.5-14.0); SEGMENTED NEUTROPHILS % (AUTO) 65.4 % (42-78); TOTAL CELLS COUNTED % (AUTO) 100 %; WHITE BLOOD COUNT 7.7 10^3/uL (4.0-10.5)
[2019-01-06 17:25] LABS: ALANINE AMINOTRANSFERASE 73 U/L (9-52); ALBUMIN 3.4 g/dL (3.5-5.0); ALKALINE PHOSPHATASE 88 U/L (38-126); ANION GAP 12 (5-19); ASPARTATE AMINO TRANSFERASE 38 U/L (14-36); BILIRUBIN,DIRECT 0.4 mg/dL (0.0-0.4); BILIRUBIN,TOTAL 0.6 mg/dL (0.2-1.3); BLOOD UREA NITROGEN 7 mg/dL (7-20); CALCIUM 8.7 mg/dL (8.4-10.2); CARBON DIOXIDE 27 mmol/L (22-30); CHLORIDE 100 mmol/L (98-107); GLUCOSE 109 mg/dL (75-110); LIPASE 109.4 U/L (23-300); POTASSIUM 3.5 mmol/L (3.6-5.0); SODIUM 139.4 mmol/L (137-145); TOTAL PROTEIN 7.4 g/dL (6.3-8.2)
[2019-01-06 17:46] LABS: APPEARANCE,URINE CLOUDY; BILIRUBIN,URINE NEGATIVE (NEGATIVE); GLUCOSE, URINE NEGATIVE (NEGATIVE); KETONES,URINE NEGATIVE (NEGATIVE); LEUKOCYTE ESTERASE,URINE MODERATE (NEGATIVE); NITRITE,URINE NEGATIVE (NEGATIVE); PROTEIN,URINE 30 mg/dL (NEGATIVE); URINE SPECIFIC GRAVITY 1.017
[2019-01-06 17:47] LABS: COLOR,URINE YELLOW
--- NOTE | 2019-01-06 20:51 | RADIOLOGY REPORT (SQ) ---
EXAM DESCRIPTION: [facility]: CT ABDOMEN PELVIS WITH IV CONTRAST CLINICAL HISTORY: 28 years Female; RLQ pain TECHNIQUE: CT of the abdomen and pelvis using intravenous contrast. All CT scans at this facility use dose modulation, iterative reconstruction, and/or weight based dosing when appropriate to reduce radiation dose to as low as reasonably achievable. COMPARISON: None. FINDINGS: Abdomen: Liver:No focal lesions. No intrahepatic ductal distention. Gallbladder:Negative Pancreas:Within normal limits Spleen:Within normal limits Right kidney: No hydronephrosis. Moderate perinephric edema. 7 mm upper pole hypodensity, likely a small cyst. No ureteral calculi. Edema extends inferiorly in the right retroperitoneum several centimeters. Left kidney: No hydronephrosis or calculi. 8 mm upper pole hypodensity, likely cyst. Adrenal glands:Within normal limits Vascular structures:Within normal limits Pelvis: Small bowel:No significant distention. Appendix:Within normal limits Colon:No distention or acute pericolonic edema. No free intraperitoneal fluid or air. Uterus is unremarkable. No adnexal enlargement. Bladder is nondistended but unremarkable. No bladder calculi. IMPRESSION: 1. Right perinephric edema without hydronephrosis, likely acute pyelonephritis. Please correlate with urinalysis. 2. Otherwise unremarkable exam.
[2019-01-06] MEDS ORDERED: IBUPROFEN 800 MG TABLET PO ONE (21:11)
[2019-01-06] MEDS ORDERED: CEFTRIAXONE INJ 1000 MG VIAL IV ONE (21:26)
[2019-01-06] MEDS ORDERED: NORMAL SALINE 1000 ML 1,000 ML IV ONE (21:28)
--- NOTE | 2019-01-06 23:03 | ER Document Report ---
ED GI/ - General Chief Complaint: Flu Symptoms Stated Complaint: VOMITTING Time Seen by Provider: 01/06/19 16:11 Mode of Arrival: Ambulatory Information source: Patient Notes: Patient is a 20-year-old female comes emergency room complaining of body aches and pains all over states she hurts from head to toe she has vomited 6 times today. She also states that she had a temp up to 103.3 has taken Tylenol to keep it down. She states that she has some pain on her right side and right flank area. She denies any diarrhea and states all this came on for the past 6 days she has been feeling rundown. He denies any other medical problems she currently takes no medicines. TRAVEL OUTSIDE OF THE [place] IN LAST 30 DAYS: No - HPI Patient complains to provider of: Abdominal pain, Flank pain, Urinary retention. No: Diarrhea Onset: Other - 6 days Timing/Duration: Gradual, Persistent, Worse Quality of pain: Cramping, Sharp, Throbbing Severity at maximum: Moderate Severity in ED: Moderate Pain Level: 3 Location: RUQ, RLQ, Right flank Vaginal bleeding (Compared to normal period): denies: Spotting, Similar, Dark brown, Passing clots, Passing tissue LMP: 1 week Associated symptoms: Dysuria, Fever, Urinary frequency, Urinary retention, Urinary urgency. denies: Vaginal discharge Exacerbated by: Denies Relieved by: Denies Similar symptoms previously: No Recently seen / treated by doctor: No - Related Data Allergies/Adverse Reactions: furosemide [From Lasix] Adverse Reaction (Mild, Verified 01/06/19 15:54) Hives Past Medical History - General Information source: Patient - Social History Smoking Status: Never Smoker Cigarette use (# per day): No Chew tobacco use (# tins/day): No Smoking Education Provided: No Frequency of alcohol use: Rare Drug Abuse: None Lives with: Family Family History: Reviewed & Not Pertinent Patient has suicidal ideation: No Patient has homicidal ideation: No - Past Medical History Cardiac Medical History: Denies: Hx Hypertension Pulmonary Medical History: Denies: Hx Asthma, Hx Tuberculosis Neurological Medical History: Denies: Hx Seizures Renal/ Medical History: Denies: Hx Kidney Stones, Hx Peritoneal Dialysis GI Medical History: Reports: Hx Gastroesophageal Reflux Disease - ACID REFLUX. Denies: Hx Hiatal Hernia, Hx Ulcer Psychiatric Medical History: Reports: Hx Post Traumatic Stress Disorder Denies: Hx Bipolar Disorder, Hx Depression, Hx Schizophrenia Past Surgical History: Reports: Hx Section - x1 - Immunizations Hx Diphtheria, Pertussis, Tetanus Vaccination: Yes - 09/26/12 Review of Systems - Review of Systems Constitutional: See HPI, Chills, Fever, Malaise, Weakness EENT: No symptoms reported Cardiovascular: No symptoms reported Respiratory: No symptoms reported Gastrointestinal: No symptoms reported Genitourinary: See HPI, Burning, Dysuria, Flank pain, Urgency, Retention Female Genitourinary: No symptoms reported Musculoskeletal: No symptoms reported Skin: No symptoms reported Hematologic/Lymphatic: No symptoms reported Neurological/Psychological: No symptoms reported -: Yes All other systems reviewed and negative Physical Exam - Vital signs Vitals: Temp Pulse Resp BP Pulse Ox 100.3 F 98 20 142/90 H 98 01/06/19 16:00 01/06/19 16:00 01/06/19 16:00 01/06/19 16:00 01/06/19 16:00 Interpretation: Hypertensive - Notes Notes: PHYSICAL EXAMINATION: GENERAL: Patient is a well-nourished well-developed 28-year-old morbidly obese female comes in emergency room with vague complaints. Basically she states she hurts from her head to her toes she is vomited several times today she has some dysuria kind of presentation and just feels lousy. HEAD: Atraumatic, normocephalic. EYES: Pupils equal round and reactive to light, extraocular movements intact, conjunctiva are normal. ENT: Nares patent, oropharynx clear without exudates. Moist mucous membranes. NECK: Normal range of motion, supple without lymphadenopathy LUNGS: Breath sounds clear to auscultation bilaterally and equal. No wheezes r ales or rhonchi. HEART: Regular rate and rhythm without murmurs ABDOMEN: Examination patient's abdomen shows she has bowel sounds all 4 quads she is tender in the right upper and lower quads to percussion and to mild palpation. Left side is normal. Suprapubic area is slightly tender to palpation. Female : deferred Musculoskeletal: Normal range of motion, no pitting or edema. No cyanosis. NEUROLOGICAL normal speech, normal gait. Normal sensory, motor exams PSYCH: Normal mood, normal affect. SKIN: Warm, Dry, normal turgor, no rashes or lesions noted. Course - Re-evaluation Re-evalutation: 01/06/19 23:[address] report shows that she has a pyelonephritis that is mild in nature but still present. We gave her Rocephin here I am going to allow her to go home since she is feeling much better and we will put her on this Bactrim DS for 14 days. I have informed patient that if she does not feel better in 24 hours or if she starts to feel worse sooner to return and we will admit her for the diagnosis of pyelonephritis. 01/06/19 23:08 01/06/19 23:10 - Vital Signs Vital signs: Temp Pulse Resp BP Pulse Ox 102.1 F H 90 18 114/92 H 100 01/06/19 20:50 01/06/19 20:50 01/06/19 20:50 01/06/19 20:50 01/06/19 20:50 - Laboratory Result Diagrams: 01/06/19 16:54 01/06/19 16:54 Laboratory results interpreted by me: 01/06/19 01/06/19 01/06/19 16:45 16:54 16:54 Hgb 10.5 L Hct 32.1 L MCV 75 L MCH 24.7 L RDW 17.2 H Monocytes % 13.2 H Potassium 3.5 L AST 38 H ALT 73 H Albumin 3.4 L Urine Protein 30 H Urine Blood SMALL H Urine Urobilinogen 4.0 H Ur Leukocyte Esterase MODERATE H Discharge - Discharge Clinical Impression: Pyelonephritis Disposition: HOME, SELF-CARE Instructions: Acetaminophen, Antibiotic Therapy ([facility]), Trimethoprim-Sulfa ([facility]) Additional Instructions: Home and rest. Medication as prescribed. As we discussed if you should feel worse in the next few hours return to ER and we will attempt to admit to that point. Given your labs are all normal and you are feeling much better I think a trial at home is well warranted. Take all the antibiotics and return here if you need any reevaluation. Prescriptions: Fluconazole [Diflucan] 150 mg PO ONCE PRN #1 tablet PRN Reason: Promethazine HCl [Phenergan 25 mg Tablet] 25 mg PO Q4 #20 tablet Sulfamethoxazole/Trimethoprim [Bactrim Ds Tablet] 1 each PO BID 14 Days #28 tablet Forms: Elevated Blood Pressure, Return to Work
[2019-01-07 00:40] VITALS: BP 118/67
== END 2019-01-07 00:43 | disposition home or self-care (01) ==
LOC: ER 15:52
DX: N12 Tubulo-interstitial nephritis, not specified as acute or chronic (principal); M79.10 Myalgia, unspecified site; R11.10 Vomiting, unspecified; R50.9 Fever, unspecified; R10.9 Unspecified abdominal pain; R33.9 Retention of urine, unspecified; R30.0 Dysuria; R35.0 Frequency of micturition; R39.15 Urgency of urination
CPT/HCPCS: 99284; 96361; 96375; 96365; 36415; 87040; 87086; 83690; 85025; 81025; 87088; 80053; 81001; 87186; 74177; J0696; J2405; J7030

== ENCOUNTER 2019-06-17 09:16 | Emergency (ER) | payer SELFPAY ==
[2019-06-17 09:34] VITALS: BP 135/84
--- NOTE | 2019-06-17 09:40 | ER Document Report ---
HPI - HPI Time Seen by Provider: 06/17/19 09:33 Pain Level: 5 Notes: Patient is an otherwise healthy 29-year-old female presenting to the emergency department chief complaint of bilateral upper dental pain. Patient reports 2 teeth have broken in the last week. She reports significant pain to the left upper and moderate pain to the right upper. She did call to make a dental appointment but they cannot get her in until the beginning of June. She denies any fevers or drainage from the area. She states she is tried taking Tylenol and ibuprofen without relief. - REPRODUCTIVE LMP: 2-3 weeks ago Reproductive: DENIES: : Past Medical History - General Information source: Patient - Social History Smoking Status: Never Smoker Chew tobacco use (# tins/day): No Frequency of alcohol use: None Drug Abuse: None Family History: Reviewed & Not Pertinent Patient has suicidal ideation: No Patient has homicidal ideation: No - Past Medical History Cardiac Medical History: Denies: Hx Hypertension Pulmonary Medical History: Denies: Hx Asthma, Hx Tuberculosis Neurological Medical History: Denies: Hx Seizures Renal/ Medical History: Denies: Hx Kidney Stones, Hx Peritoneal Dialysis GI Medical History: Reports: Hx Gastroesophageal Reflux Disease - ACID REFLUX. Denies: Hx Hiatal Hernia, Hx Ulcer Psychiatric Medical History: Reports: Hx Post Traumatic Stress Disorder Denies: Hx Bipolar Disorder, Hx Depression, Hx Schizophrenia Past Surgical History: Reports: Hx Section - x1 - Immunizations Hx Diphtheria, Pertussis, Tetanus Vaccination: Yes - 09/26/12 Vertical Provider Document - CONSTITUTIONAL Notes: PHYSICAL EXAMINATION: GENERAL: Well-appearing, well-nourished and in no acute distress. HEAD: Atraumatic, normocephalic. EYES: Pupils equal round extraocular movements intact, conjunctiva are normal. ENT: Nares patent, multiple dental caries noted throughout, fractured tooth #1 and 16. No drainable abscess identified. NECK: Normal range of motion LUNGS: No respiratory distress Musculoskeletal: Normal range of motion NEUROLOGICAL: Normal speech, normal gait. PSYCH: Normal mood, normal affect. SKIN: Warm, Dry, normal turgor, no rashes or lesions noted. - INFECTION CONTROL TRAVEL OUTSIDE OF THE [place] IN LAST 30 DAYS: No Course - Re-evaluation Re-evalutation: 06/17/19 09:43 Presentation is most consistent with likely an infected tooth. Airway is patent. Vitals within normal limits. Patient is able swallow without any difficulty. There is no significant facial swelling. No evidence of Vern angina, apical abscess, or airway obstruction. Patient will be started on antibiotics. I've instructed to follow-up with dentistry as earliest ability for definitive management. At this time will discharge with return precautions and follow-up recommendations. Verbal discharge instructions given a the bedside and opportunity for questions given. Medication warnings reviewed. Patient is in agreement with this plan and has verbalized understanding of return precautions and the need for primary care follow-up in the next 24-72 hours. - Vital Signs Vital signs: Temp Pulse Resp BP Pulse Ox 98.1 F 67 16 135/84 H 99 06/17/19 09:26 06/17/19 09:26 06/17/19 09:06/17/19 09:06/17/19 09:26 Discharge - Discharge Clinical Impression: Dental infection Condition: Stable Disposition: HOME, SELF-CARE Additional Instructions: You have been seen for dental pain. It is very important that you follow-up with a dentist for definitive care. Please return if you develop fever greater than 101, swelling in your face, vomiting, difficulty breathing or swallowing, or any other symptoms that are concerning to you. For pain you should take ibuprofen 600 mg every 6 hours as needed. Take medications as prescribed. Prescriptions: Hydrocodone Bit/Acetaminophen [Hydrocodon-Acetaminophen 5-325] 1 each PO Q6H #10 tablet Penicillin V Potassium [Penicillin Vk 500 mg Tablet] 500 mg PO BID #20 tablet Forms: Return to Work
== END 2019-06-17 09:44 | disposition home or self-care (01) ==
LOC: ER 09:16
DX: K04.7 Periapical abscess without sinus (principal); K02.9 Dental caries, unspecified; K08.89 Other specified disorders of teeth and supporting structures
CPT/HCPCS: 99282

== ENCOUNTER 2019-07-24 13:11 | Emergency (ER) | payer SELFPAY ==
[2019-07-24] MEDS ORDERED: ONDANSETRON 4 MG TAB.RAPDIS PO ONE (13:53)
[2019-07-24] MEDS ORDERED: BENZONATATE 100 MG CAPSULE PO ONE (13:53)
--- NOTE | 2019-07-24 13:56 | ER Document Report ---
ED Medical Screen (RME) - General Stated Complaint: SORE THROAT,VOMITING,HEADACHE Time Seen by Provider: 07/24/19 13:49 Notes: Patient is a 29-year-old female who presents the emergency department with a chief complaint of nausea, cough, vomiting, and a sore throat. She has had her symptoms for the past 2 weeks. Denies any abdominal pain. Exam: Cough noted. Clear breath sounds throughout. I have greeted and performed a rapid initial assessment of this patient. A comprehensive ED assessment and evaluation of the patient, analysis of test results and completion of medical decision making process will be conducted by an additional ED providers. TRAVEL OUTSIDE OF THE [place] IN LAST 30 DAYS: No - Related Data Allergies/Adverse Reactions: furosemide [From Lasix] Adverse Reaction (Mild, Verified 01/06/19 15:54) Hives Past Medical History - Past Medical History Cardiac Medical History: Denies: Hx Hypertension Pulmonary Medical History: Denies: Hx Asthma, Hx Tuberculosis Neurological Medical History: Denies: Hx Seizures Renal/ Medical History: Denies: Hx Kidney Stones, Hx Peritoneal Dialysis GI Medical History: Reports: Hx Gastroesophageal Reflux Disease - ACID REFLUX. Denies: Hx Hiatal Hernia, Hx Ulcer Psychiatric Medical History: Reports: Hx Post Traumatic Stress Disorder Denies: Hx Bipolar Disorder, Hx Depression, Hx Schizophrenia Past Surgical History: Reports: Hx Section - x1 - Immunizations Hx Diphtheria, Pertussis, Tetanus Vaccination: Yes - 09/26/12 Physical Exam - Vital signs Vitals: Temp Pulse Resp BP Pulse Ox 98.1 F 85 18 145/85 H 97 07/24/19 13:15 07/24/19 13:15 07/24/19 13:15 07/24/19 13:15 07/24/19 13:15 Course - Vital Signs Vital signs: Temp Pulse Resp BP Pulse Ox 98.1 F 85 18 145/85 H 97 07/24/19 13:15 07/24/19 13:15 07/24/19 13:15 07/24/19 13:15 07/24/19 13:15
--- NOTE | 2019-07-24 14:22 | RADIOLOGY REPORT (SQ) ---
EXAM DESCRIPTION: CHEST 2 VIEWS COMPLETED DATE/TIME: 07/24/2019 2:06 pm REASON FOR STUDY: cough x2 weeks COMPARISON: PA and lateral views of the chest from 07/23/2019. EXAM PARAMETERS: NUMBER OF VIEWS: two views TECHNIQUE: Digital Frontal and Lateral radiographic views of the chest acquired. RADIATION DOSE: NA LIMITATIONS: none FINDINGS: LUNGS AND PLEURA: No consolidation, pleural effusion or pneumothorax. MEDIASTINUM AND HILAR STRUCTURES: No mediastinal or hilar contour abnormality. HEART AND VASCULAR STRUCTURES: The cardiac silhouette and pulmonary vasculature are within normal palma its. BONES: No acute findings. HARDWARE: None. OTHER: No other finding. IMPRESSION: No acute cardiopulmonary process. TECHNICAL DOCUMENTATION: JOB ID: [id number] [employer]- All Rights Reserved Reading location - IP/workstation name: [email or web address]
[2019-07-24 15:01] LABS: ABSOLUTE EOSINOPHILS # (AUTO) 0.1 10^3/uL (0.0-0.6); ABSOLUTE LYMPHOCYTES (AUTO) 1.9 10^3/uL (0.5-4.7); ABSOLUTE MONOCYTES (AUTO) 0.3 10^3/uL (0.1-1.4); ABSOLUTE NEUT (AUTO) 3.6 10^3/uL (1.7-8.2); BASOPHILS % (AUTO) 0.2 % (0-2); EOSINOPHILS % (AUTO) 2.4 % (0-6); HEMATOCRIT 32.9 % (36.0-47.0); HEMOGLOBIN 10.6 g/dL (12.0-15.5); LYMPHOCYTES % (AUTO) 32.4 % (13-45); MEAN CORPUSCULAR HGB CONC 32.2 g/dL (32.0-36.0); MEAN CORPUSCULAR VOLUME 75 fl (80-97); PLATELET COUNT 271 10^3/uL (150-450); RED BLOOD COUNT 4.41 10^6/uL (3.72-5.28); RED CELL DISTRIBUTION WIDTH 17.4 % (11.5-14.0); TOTAL CELLS COUNTED % (AUTO) 100 %
[2019-07-24 15:25] LABS: ALBUMIN 3.6 g/dL (3.5-5.0); ALKALINE PHOSPHATASE 58 U/L (38-126); ANION GAP 5 (5-19); ASPARTATE AMINO TRANSFERASE 13 U/L (14-36); BILIRUBIN,DIRECT 0.1 mg/dL (0.0-0.4); BILIRUBIN,TOTAL 0.3 mg/dL (0.2-1.3); BLOOD UREA NITROGEN 15 mg/dL (7-20); CARBON DIOXIDE 30 mmol/L (22-30); CHLORIDE 106 mmol/L (98-107); GLUCOSE 102 mg/dL (75-110); POTASSIUM 4.2 mmol/L (3.6-5.0); TOTAL PROTEIN 7.2 g/dL (6.3-8.2)
[2019-07-24 17:17] LABS: AMORPHOUS SEDIMENT,URINE TRACE /HPF
[2019-07-24 17:26] LABS: COLOR,URINE STRAW
[2019-07-24 17:27] LABS: APPEARANCE,URINE SLIGHTLY-CLOUDY; BILIRUBIN,URINE NEGATIVE (NEGATIVE); GLUCOSE, URINE NEGATIVE (NEGATIVE); KETONES,URINE NEGATIVE (NEGATIVE); PROTEIN,URINE NEGATIVE (NEGATIVE); URINE SPECIFIC GRAVITY 1.009
[2019-07-24 17:28] LABS: LEUKOCYTE ESTERASE,URINE TRACE (NEGATIVE); NITRITE,URINE POSITIVE (NEGATIVE)
[2019-07-24 18:13] VITALS: BP 146/96
--- NOTE | 2019-07-24 18:25 | ER Document Report ---
ED General - General Chief Complaint: Cold Symptoms Stated Complaint: SORE THROAT,VOMITING,HEADACHE Time Seen by Provider: 07/24/19 13:49 Notes: ALKA NOTE: Patient is a 29-year-old female who presents the emergency department with a chief complaint of nausea, cough, vomiting, and a sore throat. She has had her symptoms for the past 2 weeks. Denies any abdominal pain. MY HPI: Patient is a 29-year-old female presents to the emergency department for 2 weeks of generalized cough and congestion. States she did feel nauseated this morning. Patient voices one episode of vomiting but then voices it was posttussive in nature. Patient also complaining of a generalized sore throat. Patient voices she has not seen anybody for these symptoms in the last 2 weeks. Patient's denying any dysuria but is admitting to urinary frequency. She is d enying any vaginal discharge. She is denying any abdominal or back pain. She is denying any chest pain or shortness of breath at this time. Patient has been treated with Tessalon Perles and Zofran upon my assessment. She is sleeping comfortably, easily arousable to verbal stimuli upon my assessm ent. Patient voices she knows she has a history of anemia but does not take iron. TRAVEL OUTSIDE OF THE [place] IN LAST 30 DAYS: No - Related Data Allergies/Adverse Reactions: furosemide [From Lasix] Adverse Reaction (Mild, Verified 01/06/19 15:54) Hives Past Medical History - General Information source: Patient - Social History Smoking Status: Never Smoker Chew tobacco use (# tins/day): No Frequency of alcohol use: None Drug Abuse: None Family History: Reviewed & Not Pertinent Patient has suicidal ideation: No Patient has homicidal ideation: No - Past Medical History Cardiac Medical History: Denies: Hx Hypertension Pulmonary Medical History: Denies: Hx Asthma, Hx Tuberculosis Neurological Medical History: Denies: Hx Seizures Renal/ Medical History: Denies: Hx Kidney Stones, Hx Peritoneal Dialysis GI Medical History: Reports: Hx Gastroesophageal Reflux Disease - ACID REFLUX. Denies: Hx Hiatal Hernia, Hx Ulcer Psychiatric Medical History: Reports: Hx Post Traumatic Stress Disorder Denies: Hx Bipolar Disorder, Hx Depression, Hx Schizophrenia Past Surgical History: Reports: Hx Section - x1 - Immunizations Hx Diphtheria, Pertussis, Tetanus Vaccination: Yes - 09/26/12 Review of Systems - Review of Systems Constitutional: denies: Fever EENT: See HPI Cardiovascular: See HPI Respiratory: See HPI Gastrointestinal: See HPI Genitourinary: See HPI Female Genitourinary: See HPI Musculoskeletal: No symptoms reported Skin: No symptoms reported Hematologic/Lymphatic: No symptoms reported Neurological/Psychological: No symptoms reported Physical Exam - Vital signs Vitals: Temp Pulse Resp BP Pulse Ox 98.1 F 85 18 145/85 H 97 07/24/19 13:15 07/24/19 13:15 07/24/19 13:15 07/24/19 13:15 07/24/19 13:15 - Notes Notes: GENERAL: Alert, interacts well. No acute distress. HEAD: Normocephalic, atraumatic. EYES: Pupils equal, round, and reactive to light. Extraocular movements intact. ENT: Oral mucosa moist, tongue midline. Nares patent, TM's intact, nonerythematous, nonbulging bilaterally. Pharynx within normal limits no palatal petechiae noted. NECK: Full range of motion. Supple. Trachea midline. No lymphadenopathy appreciated LUNGS: Clear to auscultation bilaterally, no wheezes, rales, or rhonchi. No respiratory distress. HEART: Regular rate and rhythm. No murmur ABDOMEN: Obese, soft, non-tender. Non-distended. Bowel sounds present in all 4 quadrants. EXTREMITIES: Moves all 4 extremities spontaneously. No edema, normal radial and dorsalis pedis pulses bilaterally. No cyanosis. BACK: no cervical, thoracic, lumbar midline tenderness. No saddle anesthesia, normal distal neurovascular exam. NEUROLOGICAL: Alert and oriented x3. Normal speech. cranial nerves II through XII grossly intact. PSYCH: Normal affect, normal mood. SKIN: Warm, dry, normal turgor. No rashes or lesions noted. Course - Re-evaluation Re-evalutation: 07/24/19 18:22 Laboratory 07/24/19 07/24/19 07/24/19 13:58 14:51 14:51 WBC 6.0 RBC 4.41 Hgb 10.6 L Hct 32.9 L MCV 75 L MCH 24.0 L MCHC 32.2 RDW 17.4 H Plt Count 271 Lymph % (Auto) 32.4 Bay % (Auto) 5.0 Eos % (Auto) 2.4 Baso % (Auto) 0.2 Absolute Neuts (auto) 3.6 Absolute Lymphs (auto) 1.9 Absolute Monos (auto) 0.3 Absolute Eos (auto) 0.1 Absolute Basos (auto) 0.0 Seg Neutrophils % 60.0 Sodium 140.8 Potassium 4.2 Chloride 106 Carbon Dioxide 30 Anion Gap 5 BUN 15 Creatinine 1.01 Est GFR ( Amer) > 60 Est GFR (MDRD) Non-Af > 60 Glucose 102 Calcium 9.0 Total Bilirubin 0.3 Direct Bilirubin 0.1 Neonat Total Bilirubin Not Reportable Neonat Direct Bilirubin Not Reportable Neonat Indirect Bili Not Reportable AST 13 L ALT 11 Alkaline Phosphatase 58 Total Protein 7.2 Albumin 3.6 Lipase 63.3 Urine Color Urine Appearance Urine pH Ur Specific Fitzgerald Urine Protein Urine Glucose (UA) Urine Ketones Urine Blood Urine Nitrite Urine Bilirubin Urine Urobilinogen Ur Leukocyte Esterase Urine WBC (Auto) Urine RBC (Auto) Urine Bacteria (Auto) Squamous Epi Cells Auto Amorphous Sediment Auto Urine Mucus (Auto) Urine Ascorbic Acid Urine HCG, Qual Monotest Group A Strep Rapid NEGATIVE 07/24/19 07/24/19 14:51 16:50 WBC RBC Hgb Hct MCV MCH MCHC RDW Plt Count Lymph % (Auto) Bay % (Auto) Eos % (Auto) Baso % (Auto) Absolute Neuts (auto) Absolute Lymphs (auto) Absolute Monos (auto) Absolute Eos (auto) Absolute Basos (auto) Seg Neutrophils % Sodium Potassium Chloride Carbon Dioxide Anion Gap BUN Creatinine Est GFR ( Amer) Est GFR (MDRD) Non-Af Glucose Calcium Total Bilirubin Direct Bilirubin Neonat Total Bilirubin Neonat Direct Bilirubin Neonat Indirect Bili AST ALT Alkaline Phosphatase Total Protein Albumin Lipase Urine Color STRAW Urine Appearance SLIGHTLY-CLOUDY Urine pH 7.0 Ur Specific Fitzgerald 1.009 Urine Protein NEGATIVE Urine Glucose (UA) NEGATIVE Urine Ketones NEGATIVE Urine Blood NEGATIVE Urine Nitrite POSITIVE H Urine Bilirubin NEGATIVE Urine Urobilinogen 2.0 H Ur Leukocyte Esterase TRACE H Urine WBC (Auto) 5 Urine RBC (Auto) 2 Urine Bacteria (Auto) 3+ Squamous Epi Cells Auto 11 Amorphous Sediment Auto TRACE Urine Mucus (Auto) RARE Urine Ascorbic Acid NEGATIVE Urine HCG, Qual NEGATIVE Monotest NEGATIVE Group A Strep Rapid Chest X-Ray 07/24/19 13:53 IMPRESSION: No acute cardiopulmonary process. I discussed patient's labs with her at bedside. I discussed negative strep, negative mono, negative chest x-ray. No change in patient's electrolytes, no signs of leukocytosis. Patient's hemoglobin was noted to be 10.6, MCV 75. Discussed likely use of iron although patient voices she would like to follow-up with primary care provider first. Patient's urine does show signs of infection, based on her urinary frequency will treat for same. Urine sent for culture. Discussed close follow-up with primary care provider with close return precautions. Patient stable for discharge. 07/24/19 18:25 Patient is taking [id number] DayQuil and NyQuil, this could be attributed to her elevated blood pressure. - Vital Signs Vital signs: Temp Pulse Resp BP Pulse Ox 98.2 F 75 20 146/96 H 100 07/24/19 18:07 07/24/19 18:07 07/24/19 18:07 07/24/19 18:07 07/24/19 18:07 - Laboratory Result Diagrams: 07/24/19 14:51 07/24/19 14:51 Laboratory results interpreted by me: 07/24/19 07/24/19 07/24/19 14:51 14:51 16:50 Hgb 10.6 L Hct 32.9 L MCV 75 L MCH 24.0 L RDW 17.4 H AST 13 L Urine Nitrite POSITIVE H Urine Urobilinogen 2.0 H Ur Leukocyte Esterase TRACE H Discharge - Discharge Clinical Impression: Urinary tract infection Qualifiers: Urinary tract infection type: acute cystitis Hematuria presence: without hematuria Qualified Code(s): N30.00 - Acute cystitis without hematuria Upper respiratory infection Qualifiers: URI type: unspecified viral URI Qualified Code(s): J06.9 - Acute upper respiratory infection, unspecified Condition: Stable Disposition: HOME, SELF-CARE Instructions: Urinary Tract Infection ([facility]), Viral Syndrome ([facility]), Upper Respiratory Illness ([facility]), Cephalexin ([facility]) Additional Instructions: As we discussed you have been seen and treated in the emergency department for multiple complaints. Your lab analysis is showing you do have a urinary tract infection. Please take antibiotics as prescribed. For your generalized cough and congestion please continue to take [id number] cold medicine, stay well-hydrated and follow-up with your doctor. Please return to the emergency room for any concerns. Prescriptions: Benzonatate [Tessalon Perles 100 mg Capsule] 100 mg PO Q8HP PRN #20 capsule PRN Reason: Cephalexin Monohydrate [Keflex 500 mg Capsule] 500 mg PO BID 7 Days #14 capsule Ondansetron [Zofran Odt 4 mg Tablet] 1 - 2 tab PO Q6 PRN #10 tab.rapdis PRN Reason: For Nausea/Vomiting Forms: Return to Work, Elevated Blood Pressure
== END 2019-07-24 18:41 | disposition home or self-care (01) ==
LOC: ER 13:11
DX: J06.9 Acute upper respiratory infection, unspecified (principal); B97.89 Other viral agents as the cause of diseases classified elsewhere; N30.00 Acute cystitis without hematuria; J02.9 Acute pharyngitis, unspecified; R11.2 Nausea with vomiting, unspecified; R05 Cough; R35.0 Frequency of micturition; I10 Essential (primary) hypertension
CPT/HCPCS: 99283; 36415; 87070; 87086; 87880; 83690; 85025; 81025; 87088; 86308; 80053; 81001; 71046; S0119; 87186

== ENCOUNTER 2019-08-08 11:50 | Emergency (ER) | payer SELFPAY ==
[2019-08-08] MEDS ORDERED: NORMAL SALINE 1000 ML 1,000 ML IV ONE (12:07)
[2019-08-08] MEDS ORDERED: ONDANSETRON HCL INJ/PF 4 MG/2 ML SDV IV ONE ×2 (12:07→15:00)
--- NOTE | 2019-08-08 12:07 | ER Document Report ---
ED Medical Screen (RME) - General Chief Complaint: Flu Symptoms Stated Complaint: FLU SYMPTOMS Time Seen by Provider: 08/08/19 12:02 TRAVEL OUTSIDE OF THE [place] IN LAST 30 DAYS: No - HPI Notes: 08/08/19 12:08 29-year-old female to the emergency department with multiple complaints. States for the past 2 weeks that she is chest pain, nausea, abdominal pain, poor appetite, weakness. She states that the chest pain is more consistently when she coughs or exerts herself. She states that the abdominal pain is nearly constant. She was seen here about 2 weeks ago for the same symptoms. She states that she was diagnosed with a urinary tract infection but she did not get the medicine filled. She admits to "hot flashes" and night sweats. She denies any chills. She states that she generally just feels pretty poorly. She does not have a primary care physician. I performed a brief medical screening exam on this patient and determined he needs further management and evaluation by means at ER provider. I placed initial orders to help expedite in his treatment plan today to include lab work and medications. - Related Data Allergies/Adverse Reactions: furosemide [From Lasix] Adverse Reaction (Mild, Verified 08/08/19 12:03) Hives Past Medical History - Past Medical History Cardiac Medical History: Denies: Hx Hypertension Pulmonary Medical History: Denies: Hx Asthma, Hx Tuberculosis Neurological Medical History: Denies: Hx Seizures Renal/ Medical History: Denies: Hx Kidney Stones, Hx Peritoneal Dialysis GI Medical History: Reports: Hx Gastroesophageal Reflux Disease - ACID REFLUX. Denies: Hx Hiatal Hernia, Hx Ulcer Psychiatric Medical History: Reports: Hx Post Traumatic Stress Disorder Denies: Hx Bipolar Disorder, Hx Depression, Hx Schizophrenia Past Surgical History: Reports: Hx Section - x1 - Immunizations Hx Diphtheria, Pertussis, Tetanus Vaccination: Yes - 09/26/12 Physical Exam - Vital signs Vitals: Temp Pulse Resp BP Pulse Ox 98.3 F 93 20 149/96 H 97 08/08/19 11:54 08/08/19 11:54 08/08/19 11:54 08/08/19 11:54 08/08/19 11:54 Course - Vital Signs Vital signs: Temp Pulse Resp BP Pulse Ox 98.3 F 93 20 149/96 H 97 08/08/19 11:54 08/08/19 11:54 08/08/19 11:54 08/08/19 11:54 08/08/19 11:54
--- NOTE | 2019-08-08 12:45 | RADIOLOGY REPORT (SQ) ---
EXAM DESCRIPTION: CHEST 2 VIEWS COMPLETED DATE/TIME: 08/08/2019 12:32 pm REASON FOR STUDY: chest pain with coughing COMPARISON: PA and lateral views of the chest from 07/24/2019. EXAM PARAMETERS: NUMBER OF VIEWS: two views TECHNIQUE: Digital Frontal and Lateral radiographic views of the chest acquired. RADIATION DOSE: NA LIMITATIONS: none FINDINGS: LUNGS AND PLEURA: No consolidation, pleural effusion or pneumothorax. MEDIASTINUM AND HILAR STRUCTURES: No mediastinal or hilar contour abnormality. HEART AND VASCULAR STRUCTURES: The cardiac silhouette and pulmonary vasculature are within normal palma its. BONES: No acute findings. HARDWARE: None. OTHER: No other finding. IMPRESSION: No acute cardiopulmonary process. TECHNICAL DOCUMENTATION: JOB ID: [id number] [employer]- All Rights Reserved Reading location - IP/workstation name: [email or web address]
[2019-08-08 13:55] LABS: APPEARANCE,URINE SLIGHTLY-CLOUDY; BILIRUBIN,URINE NEGATIVE (NEGATIVE); COLOR,URINE YELLOW; GLUCOSE, URINE NEGATIVE (NEGATIVE); KETONES,URINE NEGATIVE (NEGATIVE); LEUKOCYTE ESTERASE,URINE LARGE (NEGATIVE); NITRITE,URINE NEGATIVE (NEGATIVE); PROTEIN,URINE NEGATIVE (NEGATIVE); URINE SPECIFIC GRAVITY 1.016
[2019-08-08 13:57] LABS: ABSOLUTE LYMPHOCYTES (AUTO) 1.5 10^3/uL (0.5-4.7); ABSOLUTE MONOCYTES (AUTO) 0.8 10^3/uL (0.1-1.4); ABSOLUTE NEUT (AUTO) 3.8 10^3/uL (1.7-8.2); BASOPHILS % (AUTO) 0.3 % (0-2); EOSINOPHILS % (AUTO) 0.1 % (0-6); HEMATOCRIT 33.1 % (36.0-47.0); HEMOGLOBIN 10.7 g/dL (12.0-15.5); LYMPHOCYTES % (AUTO) 24.8 % (13-45); MEAN CORPUSCULAR HEMOGLOBIN 24.3 pg (27.0-33.4); MEAN CORPUSCULAR HGB CONC 32.4 g/dL (32.0-36.0); MEAN CORPUSCULAR VOLUME 75 fl (80-97); MONOCYTES % (AUTO) 13.5 % (3-13); PLATELET COUNT 233 10^3/uL (150-450); RED BLOOD COUNT 4.42 10^6/uL (3.72-5.28); RED CELL DISTRIBUTION WIDTH 17.5 % (11.5-14.0); SEGMENTED NEUTROPHILS % (AUTO) 61.3 % (42-78); TOTAL CELLS COUNTED % (AUTO) 100 %; WHITE BLOOD COUNT 6.2 10^3/uL (4.0-10.5)
[2019-08-08 14:04] LABS: ALBUMIN 3.8 g/dL (3.5-5.0); ALKALINE PHOSPHATASE 61 U/L (38-126); ANION GAP 11 (5-19); ASPARTATE AMINO TRANSFERASE 16 U/L (14-36); BILIRUBIN,DIRECT 0.1 mg/dL (0.0-0.4); BILIRUBIN,TOTAL 0.5 mg/dL (0.2-1.3); BLOOD UREA NITROGEN 8 mg/dL (7-20); CALCIUM 8.7 mg/dL (8.4-10.2); CARBON DIOXIDE 27 mmol/L (22-30); CHLORIDE 101 mmol/L (98-107); GLUCOSE 88 mg/dL (75-110); POTASSIUM 3.5 mmol/L (3.6-5.0); TOTAL PROTEIN 7.8 g/dL (6.3-8.2)
[2019-08-08] MEDS ORDERED: LIDOCAINE 1% INJ-PF (10 MG/ML) 30 ML SDV INJ ONE (14:54)
[2019-08-08] MEDS ORDERED: CEFTRIAXONE INJ 1000 MG VIAL IM ONE (14:54)
[2019-08-08] MEDS ORDERED: ONDANSETRON ODT 4 MG TAB (6 TAB/ER DISP) PO PRN (15:05)
--- NOTE | 2019-08-08 15:08 | ER Document Report ---
ED General - General Chief Complaint: Bodyaches Stated Complaint: FLU SYMPTOMS Time Seen by Provider: 08/08/19 12:02 Primary Care Provider: [facility] [Provider Group] - Follow up in 1 week [facility] [Provider Group] - Follow up in 1 week Notes: Patient is a 29-year-old female who presents emergency department with a chief complaint of body aches and abdominal pain. Denies any fever at this time, but states she has had on and off fevers. Patient was seen here 2 weeks ago and was diagnosed with a urinary tract infection, but never got her prescriptions filled due to not having any money. Patient states that she has been having some chest pain since she was diagnosed with a urinary tract infection, but states she has had occasional vomiting. She states that she has been drinking water and cranberry juice to help with her symptoms. Denies any vaginal discharge. TRAVEL OUTSIDE OF THE [place] IN LAST 30 DAYS: No - Related Data Allergies/Adverse Reactions: furosemide [From Lasix] Adverse Reaction (Mild, Verified 08/08/19 12:03) Hives Past Medical History - General Information source: Patient - Social History Smoking Status: Never Smoker Chew tobacco use (# tins/day): No Frequency of alcohol use: None Drug Abuse: None Family History: Reviewed & Not Pertinent Patient has suicidal ideation: No Patient has homicidal ideation: No - Past Medical History Cardiac Medical History: Denies: Hx Hypertension Pulmonary Medical History: Denies: Hx Asthma, Hx Tuberculosis Neurological Medical History: Denies: Hx Seizures Renal/ Medical History: Denies: Hx Kidney Stones, Hx Peritoneal Dialysis GI Medical History: Reports: Hx Gastroesophageal Reflux Disease - ACID REFLUX. Denies: Hx Hiatal Hernia, Hx Ulcer Psychiatric Medical History: Reports: Hx Post Traumatic Stress Disorder Denies: Hx Bipolar Disorder, Hx Depression, Hx Schizophrenia Past Surgical History: Reports: Hx Section - x1 - Immunizations Hx Diphtheria, Pertussis, Tetanus Vaccination: Yes - 09/26/12 Review of Systems - Review of Systems Notes: REVIEW OF SYSTEMS: CONSTITUTIONAL : See HPI. EENT: Denies eye, ear, throat, or mouth pain, discharge, or symptoms. Denies nasal or sinus congestion. CARDIOVASCULAR: Denies chest pain. RESPIRATORY: Denies shortness of breath, cough, congestion, difficulty breathing, or wheezing. GASTROINTESTINAL: Denies nausea, vomiting, and diarrhea. Denies abdominal pain. Denies constipation. GENITOURINARY: See HPI. MUSCULOSKELETAL: Denies neck and back pain. Denies joint pain or swelling. SKIN: Denies rash, itchiness, or lesions HEMATOLOGIC : Denies easy bruising or bleeding. LYMPHATIC: Denies swollen, painful, enlarged glands. NEUROLOGICAL: Denies no numbness or tingling denies weakness. Denies headache. Denies altered mental status. Denies alteration in speech. PSYCHIATRIC: Denies stress, anxiety, alteration in sleep patterns, or depression. All other systems reviewed and negative. Physical Exam - Vital signs Vitals: Temp Pulse Resp BP Pulse Ox 98.3 F 93 20 149/96 H 97 08/08/19 11:54 08/08/19 11:54 08/08/19 11:54 08/08/19 11:54 08/08/19 11:54 - Notes Notes: PHYSICAL EXAMINATION: GENERAL: Appears well, healthy, well-nourished, no acute distress. HEAD: Normocephalic, atraumatic. EYES: PERRL, conjunctiva normal, all extraocular movements intact, sclera nonicteric ENT: Moist mucous membranes. NECK: Supple, no noticeable swelling, redness, rash. Normal range of motion. LUNGS: Equal breath sounds bilaterally and clear to auscultation. No wheezes rales or rhonchi. CARDIOVASCULAR: S1-S2, regular rate, regular rhythm. Radial pulses 2+, normal. ABDOMEN: Normoactive bowel sounds. Soft, mildly tender mid lower abdomen, no guarding, no rebound tenderness, and no masses palpated. EXTREMITIES: Normal strength and range of motion, no pitting or edema. No cy anosis. NEUROLOGICAL: Moves all extremities upon command. Strength 5/5 in all extremities. PSYCH: Normal mood, normal affect. SKIN: Warm, dry. No rash, lesions, ulcerations noted. Normal skin turgor. BACK: Mild CVA tenderness noted. Course - Re-evaluation Re-evalutation: 08/08/19 Presentation is most consistent with acute pyelonephritis. Laboratories do demonstrate a large amount of white blood cells in the urine as well as bacteria. Patient has had constitutional symptoms at home as well as a fever. CVA tenderness is present on exam. The remainder laboratories are relatively unremarkable without evidence of renal dysfunction. I do not suspect an acute appendicitis, biliary pathology, pancreatitis, intra-abdominal abscess, or tubo- ovarian abscess based on history and examination. Patient has been given a dose of IV ceftriaxone and a liter of fluids. Patient is able to tolerate oral intake without difficulty. Will be discharged home on 7 day course of cephalexin. A urine culture has been sent. Strict return precautions and follow-up recommendations have been discussed at length. - Vital Signs Vital signs: Temp Pulse Resp BP Pulse Ox 98.3 F 91 16 141/85 H 100 08/08/19 15:29 08/08/19 15:29 08/08/19 15:29 08/08/19 15:29 08/08/19 15:29 - Laboratory Result Diagrams: 08/08/19 13:13 08/08/19 13:13 Laboratory results interpreted by me: 08/08/19 08/08/19 08/08/19 13:03 13:13 13:13 Hgb 10.7 L Hct 33.1 L MCV 75 L MCH 24.3 L RDW 17.5 H [place] % (Auto) 13.5 H Potassium 3.5 L Urine Urobilinogen 4.0 H Ur Leukocyte Esterase LARGE H Discharge - Discharge Clinical Impression: Urinary tract infection Qualifiers: Urinary tract infection type: acute pyelonephritis Qualified Code(s): N10 - Acute pyelonephritis Condition: Stable Disposition: HOME, SELF-CARE Instructions: Cephalexin ([facility]), Urinary Tract Infection ([facility]) Additional Instructions: Your urine shows findings consistent with a urinary tract infection. Please take all the antibiotics as directed even if your symptoms have improved. Please follow-up with your primary care physician as needed. Return to emergency room if you develop fever >101F, persistent vomiting, become lethargic, have severe pain in your sides, or any other symptoms that are concerning to you. You also are being sent home with Zofran, medication to help with nausea. You can take 1 tablet every 4 to 6 hours as needed. Prescriptions: Cephalexin [Keflex] 500 mg PO BID #14 capsule Forms: Return to Work Referrals: [facility] [Provider Group] - Follow up in 1 week [facility] [Provider Group] - Follow up in 1 week
[2019-08-08 15:30] VITALS: BP 141/85
--- NOTE | 2019-08-08 16:17 | EKG REPORT ---
SEVERITY:- BORDERLINE ECG - SINUS RHYTHM BORDERLINE T ABNORMALITIES, DIFFUSE LEADS : Confirmed by: Olive Marin MD 08-Aug-2019 16:16:37
== END 2019-08-08 15:31 | disposition home or self-care (01) ==
LOC: ER 11:50
DX: N10 Acute pyelonephritis (principal); M79.10 Myalgia, unspecified site; R10.9 Unspecified abdominal pain
CPT/HCPCS: 93005; 36415; 83690; 85025; 81025; 80053; 81001; 71046; 93010; J3490; J0696; J2405; J7030; 99284

== ENCOUNTER 2019-10-06 11:12 | Emergency (ER) | payer SELFPAY ==
[2019-10-06] MEDS ORDERED: NORMAL SALINE 1000 ML 1,000 ML IV ONE (11:46)
[2019-10-06] MEDS ORDERED: ONDANSETRON HCL INJ/PF 4 MG/2 ML SDV IV ONE (11:46)
--- NOTE | 2019-10-06 11:47 | ER Document Report ---
ED Medical Screen (RME) - General Chief Complaint: Diarrhea Stated Complaint: DIARRHEA Time Seen by Provider: 10/06/19 11:44 TRAVEL OUTSIDE OF THE [place] IN LAST 30 DAYS: No - HPI Notes: 10/06/19 11:46 Patient is a 29-year-old female no significant past medical history who presents complaining of epigastric abdominal pain, nausea, watery diarrhea over the past couple days since eating at [employer]. Patient states that she had to leave work today because she cannot stand the phone that she has to keep going to the bathroom. No recent antibiotics or travel otherwise. Denies fever. No chest pain or shortness of breath. I have treated and performed a rapid initial assessment of this patient. A comprehensive ED assessment and evaluation of the patient, analysis of test results and completion of medical decision making process will be conducted by additional ED providers. PHYSICAL EXAMINATION: GENERAL: Well-appearing, well-nourished and in no acute distress. A&Ox4. Answers questions appropriately. Abdomen: Limited exam in triage, but there is noted tenderness in the epigastrium that is mild. - Related Data Allergies/Adverse Reactions: furosemide [From Lasix] Adverse Reaction (Mild, Verified 10/06/19 11:36) Hives Past Medical History - Past Medical History Cardiac Medical History: Denies: Hx Hypertension Pulmonary Medical History: Denies: Hx Asthma, Hx Tuberculosis Neurological Medical History: Denies: Hx Seizures Renal/ Medical History: Denies: Hx Kidney Stones, Hx Peritoneal Dialysis GI Medical History: Reports: Hx Gastroesophageal Reflux Disease - ACID REFLUX. Denies: Hx Hiatal Hernia, Hx Ulcer Psychiatric Medical History: Reports: Hx Post Traumatic Stress Disorder Denies: Hx Bipolar Disorder, Hx Depression, Hx Schizophrenia Past Surgical History: Reports: Hx Section - x1 - Immunizations Hx Diphtheria, Pertussis, Tetanus Vaccination: Yes - 09/26/12 Physical Exam - Vital signs Vitals: Temp Pulse Resp BP Pulse Ox 98.7 F 86 18 136/82 H 98 10/06/19 11:21 10/06/19 11:21 10/06/19 11:21 10/06/19 11:21 10/06/19 11:21 Course - Vital Signs Vital signs: Temp Pulse Resp BP Pulse Ox 98.7 F 86 18 136/82 H 98 10/06/19 11:21 10/06/19 11:21 10/06/19 11:21 10/06/19 11:21 10/06/19 11:21
[2019-10-06 12:06] LABS: ABSOLUTE EOSINOPHILS # (AUTO) 0.1 10^3/uL (0.0-0.6); ABSOLUTE LYMPHOCYTES (AUTO) 1.4 10^3/uL (0.5-4.7); ABSOLUTE MONOCYTES (AUTO) 0.4 10^3/uL (0.1-1.4); ABSOLUTE NEUT (AUTO) 3.5 10^3/uL (1.7-8.2); BASOPHILS % (AUTO) 0.4 % (0-2); EOSINOPHILS % (AUTO) 1.4 % (0-6); HEMOGLOBIN 11.2 g/dL (12.0-15.5); LYMPHOCYTES % (AUTO) 25.5 % (13-45); MEAN CORPUSCULAR HEMOGLOBIN 24.6 pg (27.0-33.4); MEAN CORPUSCULAR VOLUME 77 fl (80-97); MONOCYTES % (AUTO) 7.8 % (3-13); PLATELET COUNT 258 10^3/uL (150-450); RED BLOOD COUNT 4.56 10^6/uL (3.72-5.28); SEGMENTED NEUTROPHILS % (AUTO) 64.9 % (42-78); TOTAL CELLS COUNTED % (AUTO) 100 %; WHITE BLOOD COUNT 5.5 10^3/uL (4.0-10.5)
[2019-10-06 12:12] LABS: APPEARANCE,URINE SLIGHTLY-CLOUDY; BILIRUBIN,URINE NEGATIVE (NEGATIVE); COLOR,URINE YELLOW; GLUCOSE, URINE NEGATIVE (NEGATIVE); KETONES,URINE NEGATIVE (NEGATIVE); PROTEIN,URINE 30 mg/dL (NEGATIVE); URINE SPECIFIC GRAVITY 1.024
[2019-10-06 12:23] LABS: ALBUMIN 3.8 g/dL (3.5-5.0); ALKALINE PHOSPHATASE 61 U/L (38-126); ANION GAP 8 (5-19); ASPARTATE AMINO TRANSFERASE 15 U/L (14-36); BILIRUBIN,DIRECT 0.2 mg/dL (0.0-0.4); BILIRUBIN,TOTAL 0.3 mg/dL (0.2-1.3); BLOOD UREA NITROGEN 8 mg/dL (7-20); CALCIUM 8.7 mg/dL (8.4-10.2); CARBON DIOXIDE 26 mmol/L (22-30); CHLORIDE 107 mmol/L (98-107); GLUCOSE 90 mg/dL (75-110); POTASSIUM 4.1 mmol/L (3.6-5.0); TOTAL PROTEIN 7.8 g/dL (6.3-8.2)
--- NOTE | 2019-10-06 13:21 | ER Document Report ---
ED General - General Chief Complaint: Diarrhea Stated Complaint: DIARRHEA Time Seen by Provider: 10/06/19 11:44 TRAVEL OUTSIDE OF THE [place] IN LAST 30 DAYS: No - HPI Notes: Patient is a 29-year-old female who presents emergency department for evaluation of diarrhea. Her symptoms started on Wednesday. She states she ate at the [employer] and shortly afterwards developed diarrhea. She states that her episodes of diarrhea in the last day of into numerous to count. She has been trying Pepto-Bismol without any significant relief. She has some chills but no katy fevers. No nausea or vomiting. She does have a diminished appetite. She denies any urinary symptoms. She states that she has had some "upset stomach" and states she feels her abdomen "rumbling" but denies any katy abdominal pain. - Related Data Allergies/Adverse Reactions: furosemide [From Lasix] Adverse Reaction (Mild, Verified 10/06/19 11:36) Hives Home Medications: None Past Medical History - General Information source: Patient - Social History Smoking Status: Never Smoker Drug Abuse: None Family History: Reviewed & Not Pertinent Patient has suicidal ideation: No Patient has homicidal ideation: No - Past Medical History Cardiac Medical History: Denies: Hx Hypertension Pulmonary Medical History: Denies: Hx Asthma, Hx Tuberculosis Neurological Medical History: Denies: Hx Seizures Renal/ Medical History: Denies: Hx Kidney Stones, Hx Peritoneal Dialysis GI Medical History: Reports: Hx Gastroesophageal Reflux Disease - ACID REFLUX. Denies: Hx Hiatal Hernia, Hx Ulcer Psychiatric Medical History: Reports: Hx Post Traumatic Stress Disorder Denies: Hx Bipolar Disorder, Hx Depression, Hx Schizophrenia Past Surgical History: Reports: Hx Section - x2 - Immunizations Hx Diphtheria, Pertussis, Tetanus Vaccination: Yes - 09/26/12 Review of Systems - Review of Systems Constitutional: No symptoms reported EENT: No symptoms reported Cardiovascular: No symptoms reported Respiratory: No symptoms reported Gastrointestinal: See HPI Genitourinary: No symptoms reported Female Genitourinary: No symptoms reported Musculoskeletal: No symptoms reported Hematologic/Lymphatic: No symptoms reported Physical Exam - Vital signs Vitals: Temp Pulse Resp BP Pulse Ox 98.7 F 86 18 136/82 H 98 10/06/19 11:21 10/06/19 11:21 10/06/19 11:21 10/06/19 11:21 10/06/19 11:21 - Notes Notes: This is an obese 29-year-old female who appears her stated age in no acute distress. Vital signs reviewed, please refer to chart. Head is normocephalic, atraumatic. Pupils equal round, reactive to light. Neck is supple without m eningismus. Heart is regular rate and rhythm. Lungs are clear to auscultation bilaterally. Abdomen is soft, nontender, normoactive bowel sounds throughout. Extremities without cyanosis, clubbing. Posterior calves are nontender. Peripheral pulses are equal. Skin is warm and dry. Patient is awake, alert, neurological exam is nonfocal. Course - Re-evaluation Re-evalutation: 10/06/19 13:18 Patient presents to the emergency department for evaluation of diarrhea. She is young and does not have any significant comorbidities besides her obesity. Her vitals are unremarkable. Her blood work is unremarkable. At this point, I advised the patient to let the illness run its course. It is more likely of viral illness, although food poisoning is on the differential. At this point she has no electrolyte abnormalities, no signs of dehydration. She will be given a work excuse and is to follow-up closely with primary care. - Vital Signs Vital signs: Temp Pulse Resp BP Pulse Ox 98.7 F 86 18 136/82 H 98 10/06/19 11:21 10/06/19 11:21 10/06/19 11:21 10/06/19 11:21 10/06/19 11:21 - Laboratory Result Diagrams: 10/06/19 11:55 10/06/19 11:55 Laboratory results interpreted by me: 10/06/19 10/06/19 11:55 11:55 Hgb 11.2 L Hct 35.0 L MCV 77 L MCH 24.6 L RDW 18.0 H Urine Protein 30 H Urine Urobilinogen 4.0 H Leukocyte Esterase Rfl TRACE H Discharge - Discharge Clinical Impression: Diarrhea Qualifiers: Diarrhea type: presumed infectious Qualified Code(s): R19.7 - Diarrhea, unspecified Condition: Stable Disposition: HOME, SELF-CARE Instructions: Diarrhea, Nonspecific ([facility]) Additional Instructions: Rest and stay well hydrated. Follow up with primary care next week. Return to the ER with worsening or new concerning symptoms of any sort. Forms: Return to Work
[2019-10-06 13:34] VITALS: BP 120/58
== END 2019-10-06 13:34 | disposition home or self-care (01) ==
LOC: ER 11:12
DX: R19.7 Diarrhea, unspecified (principal); R68.83 Chills (without fever); R63.0 Anorexia
CPT/HCPCS: 36415; 80053; 81001; 81025; 83690; 85025; 99284

== ENCOUNTER 2020-02-10 00:14 | Emergency (ER) | payer OTHER ==
[2020-02-10] MEDS ORDERED: CYCLOBENZAPRINE HCL 10 MG TABLET PO ONE (01:32)
[2020-02-10] MEDS ORDERED: HYDROCODONE/ACETAMINOPHEN 5-325 MG TABLET PO ONE (01:32)
[2020-02-10] MEDS ORDERED: HYDROCODONE/ACETAMINOPHEN 5-325 MG (6 TAB/ER DISP) PO PRN (01:32)
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
[2020-02-10 02:59] VITALS: BP 129/87
== END 2020-02-10 02:57 | disposition home or self-care (01) ==
LOC: ER 00:14
DX: M25.512 Pain in left shoulder (principal); M25.511 Pain in right shoulder; M54.2 Cervicalgia; M54.5 Low back pain; R10.2 Pelvic and perineal pain; V89.2XXA Person injured in unspecified motor-vehicle accident, traffic, initial encounter; Z88.8 Allergy status to other drugs, medicaments and biological substances
CPT/HCPCS: 99283

== ENCOUNTER 2020-07-22 09:40 | Emergency (ER) | payer OTHER ==
[2020-07-22] MEDS ORDERED: FAMOTIDINE INJ/PF 20 MG/2 ML SDV IV ONE (10:09)
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
[2020-07-22] MEDS ORDERED: MORPHINE SULFATE 10 MG/ML INJ IV ONE ×2 (12:07→18:32)
[2020-07-22] MEDS ORDERED: ONDANSETRON HCL INJ/PF 4 MG/2 ML SDV IV ONE (12:07)
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
[2020-07-22 14:29] LABS: ABSOLUTE EOSINOPHILS # (AUTO) 0.1 10^3/uL (0.0-0.6); ABSOLUTE LYMPHOCYTES (AUTO) 1.4 10^3/uL (0.5-4.7); ABSOLUTE MONOCYTES (AUTO) 0.3 10^3/uL (0.1-1.4); ABSOLUTE NEUT (AUTO) 4.6 10^3/uL (1.7-8.2); BASOPHILS % (AUTO) 0.8 % (0-2); EOSINOPHILS % (AUTO) 2.1 % (0-6); HEMATOCRIT 31.5 % (36.0-47.0); HEMOGLOBIN 10.1 g/dL (12.0-15.5); LYMPHOCYTES % (AUTO) 22.1 % (13-45); MEAN CORPUSCULAR HEMOGLOBIN 25.2 pg (27.0-33.4); MEAN CORPUSCULAR HGB CONC 32.1 g/dL (32.0-36.0); MEAN CORPUSCULAR VOLUME 78 fl (80-97); MONOCYTES % (AUTO) 4.4 % (3-13); PLATELET COUNT 451 10^3/uL (150-450); RED BLOOD COUNT 4.01 10^6/uL (3.72-5.28); RED CELL DISTRIBUTION WIDTH 19.5 % (11.5-14.0); SEGMENTED NEUTROPHILS % (AUTO) 70.6 % (42-78); TOTAL CELLS COUNTED % (AUTO) 100 %; WHITE BLOOD COUNT 6.5 10^3/uL (4.0-10.5)
[2020-07-22] MEDS ORDERED: NORMAL SALINE 1000 ML 1,000 ML IV ONE (15:12)
[2020-07-22 15:24] LABS: ALKALINE PHOSPHATASE 84 U/L (38-126); ANION GAP 11 (5-19); ASPARTATE AMINO TRANSFERASE 28 U/L (14-36); BILIRUBIN,DIRECT 0.3 mg/dL (0.0-0.4); BILIRUBIN,TOTAL 0.6 mg/dL (0.2-1.3); BLOOD UREA NITROGEN 12 mg/dL (7-20); CALCIUM 9.9 mg/dL (8.4-10.2); CARBON DIOXIDE 26 mmol/L (22-30); CHLORIDE 102 mmol/L (98-107); GLUCOSE 107 mg/dL (75-110); POTASSIUM 4.9 mmol/L (3.6-5.0); TOTAL PROTEIN 8.3 g/dL (6.3-8.2)
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
[2020-07-22] MEDS ORDERED: NAPROXEN 250 MG TABLET PO ONE (18:51)
[2020-07-22] MEDS ORDERED: DIPHENHYDRAMINE HCL 25 MG CAPSULE PO ONE (19:21)
--- NOTE | 2020-07-22 19:36 | RADIOLOGY REPORT (SQ) ---
EXAM DESCRIPTION: VENOUS UNILATERAL LOWER IMAGES COMPLETED DATE/TIME: 07/22/2020 7:26 pm REASON FOR STUDY: RLE pain;post surgery COMPARISON: None. TECHNIQUE: Dynamic and static greco scale and color images acquired of the right leg venous system. S elected spectral images acquired with additional compression and augmentation maneuvers. The contrala teral common femoral vein and saphenofemoral junction were also imaged. Images stored on PACS. LIMITATIONS: None. FINDINGS: COMMON FEMORAL: Normal phasicity, compression and augmentation. No visualized echogenic ma terial on greco scale. No defects on color images. FEMORAL: Normal compression and augmentation. No visualized echogenic material on greco scale. No defe cts on color images. POPLITEAL: Normal compression, augmentation. No visualized echogenic material on greco scale. No defec ts on color images. CALF VESSELS: Normal compression, augmentation. No visualized echogenic material on greco scale. No de fects on color images. Peroneal veins not seen because of swelling. GSV and SSV: Normal compression, augmentation. No visualized echogenic material on greco scale. No def ects on color images. ANY DEEP VENOUS INSUFFICIENCY: Not evaluated. ANY EVIDENCE OF POPLITEAL CYST: No. OTHER: No other significant finding. CONTRALATERAL COMMON FEMORAL VEIN AND SAPHENOFEMORAL JUNCTION: Normal phasicity, compression and augmentation. No visualized echogenic material on greco scale. No de fects on color images. IMPRESSION: NO EVIDENCE DVT OR SVT IN THE RIGHT LEG. TECHNICAL DOCUMENTATION: JOB ID: [id number] 2010 [employer]- All Rights Reserved Reading location - IP/workstation name: [email or web address]
[2020-07-22 21:57] VITALS: BP 117/67
== END 2020-07-22 20:20 | disposition home or self-care (01) ==
LOC: ER 09:40
DX: L50.9 Urticaria, unspecified (principal); M79.604 Pain in right leg; M25.551 Pain in right hip; M79.10 Myalgia, unspecified site; I10 Essential (primary) hypertension; Z79.899 Other long term (current) drug therapy; Z88.8 Allergy status to other drugs, medicaments and biological substances
CPT/HCPCS: 99285; 96361; 96374; 96375; 36415; 87040; 85025; 87077; 80053; 87186; 87150 ×26; 93971; 73701; J2270; J2405; J7030; S0028

== ENCOUNTER 2020-07-23 16:49 | Emergency (ER) | payer OTHER ==
[2020-07-23 16:56] VITALS: BP 128/86
[2020-07-23] MEDS ORDERED: METHYLPREDNISOLONE INJ 125 MG/2 ML SDV IV ONE (17:15)
[2020-07-23] MEDS ORDERED: FAMOTIDINE INJ/PF 20 MG/2 ML SDV IV ONE (17:15)
[2020-07-23] MEDS ORDERED: DIPHENHYDRAMINE HCL 50 MG/ML VIAL IV ONE (17:15)
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
== END 2020-07-23 17:40 | disposition left against medical advice (07) ==
LOC: ER 16:49
DX: L50.9 Urticaria, unspecified (principal); I10 Essential (primary) hypertension
CPT/HCPCS: 99281

== ENCOUNTER 2020-08-29 13:17 | Emergency (ER) | payer MEDICAID ==
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
[2020-08-29 14:58] LABS: ABSOLUTE LYMPHOCYTES (AUTO) 0.9 10^3/uL (0.5-4.7); ABSOLUTE MONOCYTES (AUTO) 0.4 10^3/uL (0.1-1.4); ABSOLUTE NEUT (AUTO) 8.7 10^3/uL (1.7-8.2); BASOPHILS % (AUTO) 0.2 % (0-2); EOSINOPHILS % (AUTO) 0.2 % (0-6); HEMATOCRIT 32.5 % (36.0-47.0); LYMPHOCYTES % (AUTO) 8.6 % (13-45); MEAN CORPUSCULAR HEMOGLOBIN 23.2 pg (27.0-33.4); MEAN CORPUSCULAR HGB CONC 30.8 g/dL (32.0-36.0); MEAN CORPUSCULAR VOLUME 75 fl (80-97); MONOCYTES % (AUTO) 3.7 % (3-13); PLATELET COUNT 291 10^3/uL (150-450); RED BLOOD COUNT 4.33 10^6/uL (3.72-5.28); RED CELL DISTRIBUTION WIDTH 18.5 % (11.5-14.0); SEGMENTED NEUTROPHILS % (AUTO) 87.3 % (42-78); TOTAL CELLS COUNTED % (AUTO) 100 %
[2020-08-29 15:06] LABS: APPEARANCE,URINE SLIGHTLY-CLOUDY; BILIRUBIN,URINE NEGATIVE (NEGATIVE); COLOR,URINE YELLOW; GLUCOSE, URINE 50 mg/dL (NEGATIVE); KETONES,URINE NEGATIVE (NEGATIVE); LEUKOCYTE ESTERASE,URINE TRACE (NEGATIVE); NITRITE,URINE NEGATIVE (NEGATIVE); PROTEIN,URINE 30 mg/dL (NEGATIVE); UROBILINOGEN,URINE NEGATIVE mg/dL (<2.0)
[2020-08-29 15:24] LABS: URINE AMPHETAMINES SCREEN NEGATIVE; URINE BARBITURATES SCREEN NEGATIVE; URINE BENZODIAZEPINES SCREEN NEGATIVE; URINE COCAINE SCREEN NEGATIVE; URINE MARIJUANA (THC) SCREEN NEGATIVE; URINE METHADONE SCREEN NEGATIVE; URINE PHENCYCLIDINE SCREEN NEGATIVE
[2020-08-29 15:24] LABS: ALBUMIN 3.9 g/dL (3.5-5.0); ALKALINE PHOSPHATASE 89 U/L (38-126); ANION GAP 12 (5-19); ASPARTATE AMINO TRANSFERASE 44 U/L (14-36); BILIRUBIN,DIRECT 0.3 mg/dL (0.0-0.4); BILIRUBIN,TOTAL 0.5 mg/dL (0.2-1.3); BLOOD UREA NITROGEN 12 mg/dL (7-20); CALCIUM 9.1 mg/dL (8.4-10.2); CARBON DIOXIDE 24 mmol/L (22-30); CHLORIDE 106 mmol/L (98-107); GLUCOSE 150 mg/dL (75-110); POTASSIUM 4.1 mmol/L (3.6-5.0); TOTAL PROTEIN 7.6 g/dL (6.3-8.2)
[2020-08-29 15:25] LABS: ACETAMINOPHEN < 10 ug/mL (10-30); ALCOHOL < 10 mg/dL (NONE DETECTED); SALICYLATE < 1.0 mg/dL (2.0-20.0)
--- NOTE | 2020-08-29 17:45 | EKG REPORT ---
SEVERITY:- ABNORMAL ECG - SINUS RHYTHM NONSPECIFIC T ABNORMALITIES, INFERIOR LEADS : Confirmed by: Alejandro Mcfadden MD 29-Aug-2020 17:45:03
--- NOTE | 2020-08-29 19:05 | PSYCHOLOGICAL NOTE ---
Psych Note - Psych Note Date seen by psych provider: 08/29/20 Time seen by psych provider: 14:05 Psych Note: Reason for Consult: Consent Permissions: Patient arrived to [facility] ED via Clinical Presentation: IVC Criteria per [place] GS 122C Dangerous to others Within the relevant past the individual No has inflicted or attempted to inflict or threatened to inflict serious bodily harm on another AND No that there is a reasonable probability that this conduct will be repeated as there is an absence of supervision or structure to prevent. OR No has acted in such a way as to create a substantial risk of serious bodily harm to another AND No that there is a reasonable probability that this conduct will be repeated as there is an absence of supervision or structure to prevent. OR No has engaged in extreme destruction of property AND NO that there is a reasonable probability that this conduct will be repeated as there is an absence of supervision or structure to prevent. Previous episodes of dangerousness to others, when applicable, may be considered when determining reasonable probability of future dangerous conduct. Clear, cogent, and convincing evidence that an individual has committed a homicide in the relevant past is prima facie evidence of dangerousness to others. Dangerous to self Within the relevant past the individual has done any of the following: acted in such a way as to show ALL of the following: No The individual would be unable without care, supervision, and the continued assistance of others not otherwise available, to exercise self- control, judgment, and discretion in the conduct of the individual's daily responsibilities and social relations or to satisfy the individual's need for nourishment, personal or medical care, penitentiary, or self-protection and safety. AND No There is a reasonable probability of the individual suffering serious physical debilitation within the near future unless adequate treatment is given. A showing of behavior that is grossly irrational, of actions that the individual is unable to control, of behavior that is grossly inappropriate to the situation, or of other evidence of severely impaired insight and judgment shall create a prima facie inference that the individual is unable to care for himself or herself. OR No has attempted suicide or threatened suicide AND No that there is a reasonable probability of suicide unless adequate treatment is given as there is an absence of supervision or structure to prevent suicide of patient who has made an attempt, serious gesture or threat. OR No has mutilated himself or herself or attempted to mutilate himself or herself AND No that there is a reasonable probability of serious self-mutilation unless adequate treatment is given as there is an absence of supervision or structure to prevent. NOTE: Previous episodes of dangerousness to self, when applicable, may be considered when determining reasonable probability of physical debilitation, suicide, or self-mutilation. Medication recommendations per [facility] contracted psychiatrist are as follows: thorazine 50mg every 6 hours as needed cogentin 1mg daily Impression\plan: Patient is cleared from acute psychiatric services. 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 She discloses that she did stop for approximately 1 year however was provided to Percocets after her C- section which started her addiction again. Patient confirms she purchased Percocet from the street. She adamantly denies her overdose was intentional and requests assistance to obtain sobriety. Patient reports she feels with medication she can detox from home with her mother's help. Patient's mother confirms she be part of patient's plan of care. Patient divided local resource list including mobile crisis contact information and [place] [facility] in case the patient changes her mind would like to go voluntarily for detox. A referral to community paramedics will be submitted to further assist the patient in obtaining substance abuse services. Dr. Narayanan was consulted to care management of this patient; attending physicians in agreement with recommendations and disposition.
[2020-08-29] MEDS ORDERED: CHLORPROMAZINE HCL 50 MG TABLET PO ONE (19:39)
[2020-08-29] MEDS ORDERED: BENZTROPINE MESYLATE 1 MG TABLET PO ONE (19:40)
[2020-08-29 20:14] VITALS: BP 126/69
== END 2020-08-29 20:14 | disposition home or self-care (01) ==
LOC: ER 13:17
DX: T40.2X4A Poisoning by other opioids, undetermined, initial encounter (principal); Y92.009 Unspecified place in unspecified non-institutional (private) residence as the place of occurrence of the external cause; I10 Essential (primary) hypertension
CPT/HCPCS: 93005; 99285; 36415; 80307 ×4; 84703; 85025; 80053; 81001; 93010; J3490 ×2